=== PATIENT | male | born 1980 | race Caucasian/White ===

== ENCOUNTER → 2016-10-25 | Outpatient (CLI) | payer OTHER ==
[~2016-10-25] MED LIST: ALPR-411 PO; ALPR1TAB3 PO; BUPRTAB PO; BUPRTAB51 PO; CLON1TAB3 PO; LITH600C PO; NALT380I IM; ZOLP10TA PO; [UNRECOGNIZED DRUG - REMARK] PO
--- NOTE | 2016-10-25 11:53 | DIAGNOSTIC IMAGING REPORT ---
BILIARY ULTRASOUND CLINICAL HISTORY: EPIGASTRIC PAIN R10.13 COMPARISON STUDY: 03/02/2011 FINDINGS: The pancreas appears sonographically normal. The gallbladder appears sonographically normal. There is no ductal dilatation. The common bile duct measures 3 mm. There is no right-sided hydronephrosis. The liver appears sonographically normal. IMPRESSION: Normal study Electronically signed by: Roland Nicholas M.D. 10/25/2016 11:51 AM Dictated Date/Time: 10/25/2016 11:50 AM
== END | disposition home or self-care (01) ==
LOC: C.ULTR 08:04
PROVIDERS: ATTEND Internal Medicine
DX: R10.13 Epigastric pain (principal); R10.11 Right upper quadrant pain

== ENCOUNTER 2016-11-06 19:42 | Emergency (ER) | payer OTHER ==
[~2016-11-06] VITALS: Ht 172.7 cm; Wt 75.5 kg
[~2016-11-06 19:42] MED LIST changes: -ALPR-411 PO; -ALPR1TAB3 PO; -NALT380I IM; -[UNRECOGNIZED DRUG - REMARK] PO
[2016-11-06 19:43] VITALS: TEMP 36.9; Ht 172.7 cm; Wt 75.5 kg
[2016-11-06] MEDS ORDERED: ALPR1TAB3 PO (19:52)
[2016-11-06] MEDS ORDERED: ALPR-411 PO (19:52)
--- NOTE | 2016-11-06 20:35 | EMERGENCY ROOM VISIT NOTE ---
History Report prepared by Franca: Rigo Oquendo Under the Supervision of: Dr. Be Zacarias M.D. First contact with patient: 20:01 Chief Complaint: ANXIETY Stated Complaint: NECK,VISION,RAPID HEARTRATE History of Present Illness The patient is a 36 year old male who presents to the Emergency Room with complaints of persistent generalized tremors since approximately 1800 tonight. The patient was at work at [employer] when the shaking started. His neck and arm also became stiff and difficulty to move. The patient became very anxious because of these symptoms. His vision became temporarily blurry. He denies any headaches. The patient has had these tremors before. He takes lithium, which he has been compliant with. Source of History: patient Onset: 1800 tonight Position: other (generalized) Quality: other (tremors) Timing: other (persistent) Associated Symptoms: + neck pain, No headache Review of Systems See HPI for pertinent positives & negatives. A total of 10 systems reviewed and were otherwise negative. Past Medical & Surgical Medical Problems: (1) ABDOMINAL PAIN, EPIGASTRIC (2) Anxiety (3) ANXIETY STATE NOS (4) ASTHMA, UNSPECIFIED (5) Benign hypertension (6) BENIGN HYPERTENSION (7) Benzodiazepine overdose (8) CHEST PAIN NEC (9) Clostridium difficile infection (10) DEPRESSIVE DISORDER NEC (11) DIZZINESS AND GIDDINESS (12) Dysthymic Disorder (13) FALL NOS (14) History of - schizophrenia (15) HYPOPOTASSEMIA (16) NAUSEA WITH VOMITING (17) opiate withdrawl (18) OTHER CONVULSIONS (19) Pneumonia, Organism Nos (20) SYNCOPE AND COLLAPSE (21) TOBACCO USE DISORDER Family History Heart disease Kidney disease Social History Smoking Status: Current Every Day Smoker Alcohol Use: heavy Drug Use: heroin Marital Status: single Housing Status: lives alone Occupation Status: student, other Current/Historical Medications Scheduled Alprazolam (Xanax), 0.5 MG PO HS Alprazolam (Xanax), 1 MG PO BID Bupropion Hcl (Wellbutrin Xl), 150 MG PO QAM Bupropion Hcl (Wellbutrin Xl), 300 MG PO QAM [place] Carbonate ([place] Carbonate), 1,200 MG PO DAILY Zolpidem Tartrate (Ambien), 10 MG PO HS Allergies Coded Allergies: Penicillins (Verified Allergy, Mild, ., 11/06/16) Physical Exam Vital Signs Date Time Temp Pulse Resp B/P Pulse Ox O2 Delivery O2 Flow Rate FiO2 11/06/16 22:01 73 18 142/80 98 11/06/16 20:51 95 20 164/86 96 Room Air 11/06/16 19:43 36.9 116 20 190/112 97 Room Air Physical Exam CONSTITUTIONAL: Moderate to severe anxious distress. Tremulous. HEENT: No icterus, moist mucous membranes NECK: No meningismus, trachea is midline. CARDIOVASCULAR: Regular rate, normal perfusion RESPIRATORY: Unlabored breathing. Clear to auscultation. GASTROINTESTINAL: Non-tender GENITOURINARY: No flank tenderness MUSCULOSKELETAL: Full range of motion NEUROLOGIC: No acute gross focal deficits. PSYCHIATRIC: Normal affect SKIN: Normal for ethnicity. Medical Decision & Procedures Laboratory Results 11/06/16 20:23 Red Blood Count 4.77, Mean Corpuscular Volume 92.0, Mean Corpuscular Hemoglobin 32.3, Mean Corpuscular Hemoglobin Concent 35.1, Mean Platelet Volume 9.3, Neutrophils (%) (Auto) 55.6, Lymphocytes (%) (Auto) 34.8, Monocytes (%) (Auto) 7.6, Eosinophils (%) (Auto) 1.5, Basophils (%) (Auto) 0.2, Neutrophils # (Auto) 5.89, Lymphocytes # (Auto) 3.69, Monocytes # (Auto) 0.81, Eosinophils # (Auto) 0.16, Basophils # (Auto) 0.02 11/06/16 20:23 Test 11/06/16 20:23 White Blood Count 10.60 K/uL (4.8-10.8) Red Blood Count 4.77 M/uL (4.7-6.1) Hemoglobin 15.4 g/dL (14.0-18.0) Hematocrit 43.9 % (42-52) Mean Corpuscular Volume 92.0 fL (80-100) Mean Corpuscular Hemoglobin 32.3 pg (25-34) Mean Corpuscular Hemoglobin Concent 35.1 g/dl (32-36) Platelet Count 313 K/uL (130-400) Mean Platelet Volume 9.3 fL (7.4-10.4) Neutrophils (%) (Auto) 55.6 % Lymphocytes (%) (Auto) 34.8 % Monocytes (%) (Auto) 7.6 % Eosinophils (%) (Auto) 1.5 % Basophils (%) (Auto) 0.2 % Neutrophils # (Auto) 5.89 K/uL (1.4-6.5) Lymphocytes # (Auto) 3.69 K/uL (1.2-3.4) Monocytes # (Auto) 0.81 K/uL (0.11-0.59) Eosinophils # (Auto) 0.16 K/uL (0-0.5) Basophils # (Auto) 0.02 K/uL (0-0.2) RDW Standard Deviation 42.8 fL (36.4-46.3) RDW Coefficient of Variation 12.6 % (11.5-14.5) Immature Granulocyte % (Auto) 0.3 % Immature Granulocyte # (Auto) 0.03 K/uL (0.00-0.02) Anion Gap 13.0 mmol/L (3-11) Est Creatinine Clear Calc Drug Dose 107.1 ml/min Estimated GFR () 122.1 Estimated GFR (Non- 105.4 BUN/Creatinine Ratio 11.0 (10-20) Calcium Level 10.0 mg/dl (8.5-10.1) Chemistry Specimen Hemolysis [place] Level 0.7 mMOL/L (0.6-1.2) Ethyl Alcohol mg/dL < 3.0 mg/dl (0-3) Labs reviewed by ED physician. Medications Administered Medications (Trade) Dose Ordered Sig/Pamela Route Start Time Stop Time Status Last Admin Dose Admin Lorazepam (Ativan Inj) 1 mg NOW STAT IV 11/06/16 20:38 11/06/16 20:39 DC 11/06/16 20:45 1 MG Acetaminophen (Tylenol Tab) 1,000 mg NOW STAT PO 11/06/16 20:40 11/06/16 20:42 DC 11/06/16 20:50 1,000 MG Ketorolac Tromethamine (Toradol Inj) 30 mg NOW STAT IV 11/06/16 20:40 11/06/16 20:42 DC 11/06/16 20:48 30 MG ED Course 2034: Past medical records reviewed. The patient was evaluated in room C11b. A complete history and physical examination was performed. 2037: Ativan 1 mg IV. 2039: Toradol 30 mg IV, Tylenol 1000 mg PO. 2044: Ativan 1 mg IV PRN. 2146: Reassessed the patient. He appeared completely comfortable. Discussed the findings with him. He verbalized understanding and agreement of the treatment plan. The patient is ready for discharge. Medical Decision 36-year-old with history of anxiety disorder presents to the emergency room for acute anxiety attack after he had a red bull while at work. He is compliant with his lithium and his review of systems otherwise negative. He was trembling and very anxious on first examination was subsequently given Ativan IV. Reexamination prior to discharge revealed patient to be comfortable and congenial complaints. He had no further concerns and desired to leave. Impression Primary Impression: Anxiety Scribe Attestation The scribe's documentation has been prepared under my direction and personally reviewed by me in its entirety. I confirm that the note above accurately reflects all work, treatment, procedures, and medical decision making performed by me. Departure Information Dispostion Home / Self-Care Referrals Christian Yusuf MD (PCP) Forms HOME CARE DOCUMENTATION FORM, IMPORTANT VISIT INFORMATION, Work Instructions Patient Instructions Anxiety Body Response, My [facility]
[2016-11-06] MEDS ORDERED: LORAZEPAM 2 MG/ML 1 ML VIAL IV STA (20:38)
[2016-11-06] MEDS ORDERED: ACETAMINOPHEN 500 MG TAB PO STA (20:40)
[2016-11-06] MEDS ORDERED: KETOROLAC TROMETHAMINE 30 MG/ML VIAL IV STA (20:40)
[2016-11-06] MEDS ORDERED: LORAZEPAM 2 MG/ML 1 ML VIAL IV PRN (20:45)
[2016-11-06 20:49] LABS: BASO % 0.2 %; BASO ABS # 0.02 K/uL (0-0.2); COMPLETE YES; EOS % 1.5 %; HEMATOCRIT 43.9 % (42-52); IG% 0.3 %; LYMPH % 34.8 %; LYMPH ABS # 3.69 K/uL (1.2-3.4); MEAN CORPUSCULAR HEMOGLOBIN 32.3 pg (25-34); MEAN CORPUSCULAR HGB CONC 35.1 g/dl (32-36); MEAN PLATELET VOLUME 9.3 fL (7.4-10.4); MONO % 7.6 %; NEUT % 55.6 %; PLATELET COUNT 313 K/uL (130-400); RED BLOOD COUNT 4.77 M/uL (4.7-6.1)
[2016-11-06 21:09] LABS: CREATININE 0.94 mg/dl (0.60-1.40); POTASSIUM 4.5 mmol/L (3.5-5.1)
[2016-11-06 22:01] VITALS: BP 142/80; PULSE 73; O2SAT 98
== END 2016-11-06 22:01 | disposition home or self-care (01) ==
LOC: C.EDB 19:43 → C.EDC 22:01
DX: F41.9 Anxiety disorder, unspecified (principal); J45.909 Unspecified asthma, uncomplicated; I10 Essential (primary) hypertension; F17.200 Nicotine dependence, unspecified, uncomplicated

== ENCOUNTER → 2016-11-21 | Outpatient (CLI) | payer OTHER ==
[~2016-11-21] MED LIST changes: +ALPR-411 PO; +ALPR1TAB3 PO; -CLON1TAB3 PO; +NALT380I IM; +[UNRECOGNIZED DRUG - REMARK] PO
[2016-11-21 10:13] LABS: BLOOD UREA NITROGEN 14 mg/dl (7-18); BUN/CREATININE RATIO 14.5 (10-20); CALCIUM 9.4 mg/dl (8.5-10.1); CARBON DIOXIDE 28 mmol/L (21-32); CHLORIDE 104 mmol/L (98-107); CREATININE 0.95 mg/dl (0.60-1.40); GLUCOSE 71 mg/dl (70-99); POTASSIUM 4.2 mmol/L (3.5-5.1); SODIUM 140 mmol/L (136-145)
== END | disposition home or self-care (01) ==
LOC: C.LAB 09:19
PROVIDERS: ATTEND Psychiatry & Neurology Psychiatry
DX: Z79.899 Other long term (current) drug therapy (principal)

== ENCOUNTER 2017-02-20 13:48 | Emergency (ER) | payer OTHER ==
[~2017-02-20] VITALS: Ht 172.7 cm; Wt 72.9 kg
[~2017-02-20 13:48] MED LIST changes: -NALT380I IM; -[UNRECOGNIZED DRUG - REMARK] PO
[2017-02-20 13:55] VITALS: TEMP 36.7; Ht 172.7 cm; Wt 72.9 kg
[2017-02-20 14:02] VITALS: O2SAT 92
[2017-02-20] MEDS ORDERED: NALT380I IM (14:34)
[2017-02-20] MEDS ORDERED: [UNRECOGNIZED DRUG - REMARK] PO (14:40)
[2017-02-20] MEDS ORDERED: SODIUM CHLORIDE 0.9% 1000ML 1,000 ML IV STA (15:08)
[2017-02-20 16:29] LABS: BASO % 0.3 %; BASO ABS # 0.03 K/uL (0-0.2); COMPLETE YES; HEMATOCRIT 46.9 % (42-52); IG% 0.3 %; LYMPH ABS # 4.16 K/uL (1.2-3.4); MEAN CELL VOLUME 92.3 fL (80-100); MEAN CORPUSCULAR HEMOGLOBIN 31.1 pg (25-34); MEAN CORPUSCULAR HGB CONC 33.7 g/dl (32-36); MEAN PLATELET VOLUME 9.1 fL (7.4-10.4); MONO % 5.1 %; NEUT % 46.3 %; PLATELET COUNT 327 K/uL (130-400); RED BLOOD COUNT 5.08 M/uL (4.7-6.1); WHITE BLOOD COUNT 8.86 K/uL (4.8-10.8)
[2017-02-20 16:48] LABS: ALT/SGPT 18 U/L (12-78); AST/SGOT 19 U/L (15-37); BLOOD UREA NITROGEN 4 mg/dl (7-18); BUN/CREATININE RATIO 4.8 (10-20); CALCIUM 9.3 mg/dl (8.5-10.1); CARBON DIOXIDE 31 mmol/L (21-32); CHLORIDE 110 mmol/L (98-107); CREATININE 0.75 mg/dl (0.60-1.40); GLUCOSE 81 mg/dl (70-99); POTASSIUM 3.9 mmol/L (3.5-5.1); SODIUM 149 mmol/L (136-145)
[2017-02-20 16:51] LABS: ALKALINE PHOSPHATASE 61 U/L (45-117)
[2017-02-20 16:53] LABS: ACETAMINOPHEN < 2 ug/ml (10-30)
[2017-02-20 17:08] VITALS: BP 125/88; PULSE 79; O2SAT 100
--- NOTE | 2017-02-20 18:22 | EMERGENCY ROOM VISIT NOTE ---
History Report prepared by Franca: Seth Francois Under the Supervision of: Dr. Reed Benjamin M.D. First contact with patient: 14:57 Chief Complaint: ALCOHOL OVERDOSE Stated Complaint: ALCOHOL OVERDOSE Nursing Triage Summary: pt arrived with staff antisubmarine officer and cuffed. reported pt is underarrest for viloation of probation pt was visited by staff antisubmarine officer today, pt came out of home visually intoxicated and staggering and combative staff antisubmarine officer states he blew 0.361 pt reports drinking unknown amount of hard liquior and beer pt c/o headache History of Present Illness The patient is a 37 year old male who presents to the Emergency Room with complaints of alcohol intoxication beginning shortly prior to arrival. Per program officer, the patient is on probation and is not allowed to drink alcohol at all. He states that he found the patient to be drinking today. He states that the patient blew a 0.361 on scene. The program officer states that the patient is under arrest and needs to be medically cleared before going to shelter. The patient states "I didn't drink enough to become intoxicated", but admits that he did have some alcohol today. He also complains of a headache, which he believes to be from stress. He denies any recent falls or trauma. The patient states that he has had diarrhea and vomiting last week. He states that his diarrhea, and vomiting have since resolved. HPI limited secondary to alcohol intoxication. Source of History: patient, other (program officer) History Limited By: intoxication (alcohol) Onset: shortly prior to arrival Quality: other (alcohol intoxication) Timing: constant Associated Symptoms: + diarrhea, + headache, + vomiting Review of Systems ROS limited secondary to alcohol intoxication. Past Medical & Surgical Medical Problems: (1) ABDOMINAL PAIN, EPIGASTRIC (2) Anxiety (3) ANXIETY STATE NOS (4) ASTHMA, UNSPECIFIED (5) Benign hypertension (6) BENIGN HYPERTENSION (7) Benzodiazepine overdose (8) CHEST PAIN NEC (9) Clostridium difficile infection (10) DEPRESSIVE DISORDER NEC (11) DIZZINESS AND GIDDINESS (12) Dysthymic Disorder (13) FALL NOS (14) History of - schizophrenia (15) HYPOPOTASSEMIA (16) NAUSEA WITH VOMITING (17) opiate withdrawl (18) OTHER CONVULSIONS (19) Pneumonia, Organism Nos (20) SYNCOPE AND COLLAPSE (21) TOBACCO USE DISORDER Family History Heart disease Kidney disease Social History Smoking Status: Current Every Day Smoker Alcohol Use: heavy Drug Use: heroin Marital Status: single Housing Status: lives alone Occupation Status: student, other Current/Historical Medications Scheduled Alprazolam (Xanax), 0.5 MG PO HS Alprazolam (Xanax), 1 MG PO BID Bupropion Hcl (Wellbutrin Xl), 150 MG PO QAM Bupropion Hcl (Wellbutrin Xl), 300 MG PO QAM [place] Carbonate (Kimball Carbonate), 1,200 MG PO DAILY Naltrexone (Vivitrol), 300 MG IM MONTHLY Zolpidem Tartrate (Ambien), 10 MG PO HS [anti-psychotic], 1 TAB PO DAILY Allergies Coded Allergies: Penicillins (Verified Allergy, Mild, ., 11/06/16) Physical Exam Vital Signs Date Time Temp Pulse Resp B/P Pulse Ox O2 Delivery O2 Flow Rate FiO2 02/20/17 17:08 79 16 125/88 100 02/20/17 15:27 81 16 128/91 98 Room Air 02/20/17 14:02 92 Room Air 02/20/17 13:55 36.7 63 18 128/89 92 Room Air 02/20/17 13:55 90 Physical Exam Constitutional: Vital signs reviewed. Eyes: Pupils are equal round reactive to light. Conjunctiva are noninjected. ENT: Pharynx is clear without erythema or exudate. Mucous membranes are moist. Neck supple without meningeal signs. Normocephalic atraumatic. Respiratory: Clear to auscultation bilaterally. Breath sounds are equal bilaterally. Cardiovascular: Regular rate and rhythm. No rubs or gallops. GI: Soft, nondistended and nontender. Bowel sounds are present. Musculoskeletal: No peripheral edema. No lower extremity tenderness. Integumentary: No cyanosis. Neurological: The patient is awake alert. No focal deficits. No gross cranial nerve deficits. Not cooperative with exam. Intoxicated. Slurred speech. Psychiatric: Unable to assess. Medical Decision & Procedures Laboratory Results 02/20/17 15:52 Red Blood Count 5.08, Mean Corpuscular Volume 92.3, Mean Corpuscular Hemoglobin 31.1, Mean Corpuscular Hemoglobin Concent 33.7, Mean Platelet Volume 9.1, Neutrophils (%) (Auto) 46.3, Lymphocytes (%) (Auto) 47.0, Monocytes (%) (Auto) 5.1, Eosinophils (%) (Auto) 1.0, Basophils (%) (Auto) 0.3, Neutrophils # (Auto) 4.10, Lymphocytes # (Auto) 4.16, Monocytes # (Auto) 0.45, Eosinophils # (Auto) 0.09, Basophils # (Auto) 0.03 02/20/17 15:52 Test 02/20/17 15:52 White Blood Count 8.86 K/uL (4.8-10.8) Red Blood Count 5.08 M/uL (4.7-6.1) Hemoglobin 15.8 g/dL (14.0-18.0) Hematocrit 46.9 % (42-52) Mean Corpuscular Volume 92.3 fL (80-100) Mean Corpuscular Hemoglobin 31.1 pg (25-34) Mean Corpuscular Hemoglobin Concent 33.7 g/dl (32-36) Platelet Count 327 K/uL (130-400) Mean Platelet Volume 9.1 fL (7.4-10.4) Neutrophils (%) (Auto) 46.3 % Lymphocytes (%) (Auto) 47.0 % Monocytes (%) (Auto) 5.1 % Eosinophils (%) (Auto) 1.0 % Basophils (%) (Auto) 0.3 % Neutrophils # (Auto) 4.10 K/uL (1.4-6.5) Lymphocytes # (Auto) 4.16 K/uL (1.2-3.4) Monocytes # (Auto) 0.45 K/uL (0.11-0.59) Eosinophils # (Auto) 0.09 K/uL (0-0.5) Basophils # (Auto) 0.03 K/uL (0-0.2) RDW Standard Deviation 42.8 fL (36.4-46.3) RDW Coefficient of Variation 12.7 % (11.5-14.5) Immature Granulocyte % (Auto) 0.3 % Immature Granulocyte # (Auto) 0.03 K/uL (0.00-0.02) Anion Gap 8.0 mmol/L (3-11) Est Creatinine Clear Calc Drug Dose 133.0 ml/min Estimated GFR () 137.7 Estimated GFR (Non- 118.8 BUN/Creatinine Ratio 4.8 (10-20) Calcium Level 9.3 mg/dl (8.5-10.1) Total Bilirubin 0.2 mg/dl (0.2-1) Direct Bilirubin < 0.1 mg/dl (0-0.2) Aspartate Amino Transf (AST/SGOT) 19 U/L (15-37) Alanine Aminotransferase (ALT/SGPT) 18 U/L (12-78) Alkaline Phosphatase 61 U/L (45-117) Total Protein 8.4 gm/dl (6.4-8.2) Albumin 4.6 gm/dl (3.4-5.0) Salicylates Level 2.9 mg/dl (2.8-20) Acetaminophen Level < 2 ug/ml (10-30) Ethyl Alcohol mg/dL 278.0 mg/dl (0-3) Laboratory results as reviewed by me. Medications Administered Medications (Trade) Dose Ordered Sig/Pamela Route Start Time Stop Time Status Last Admin Dose Admin Sodium Chloride (Nss 1000ml) 1,000 ml @ 999 mls/hr Q1H1M STAT IV 02/20/17 15:08 02/20/17 16:08 DC 02/20/17 15:08 999 MLS/HR ED Course 1502: The patient was evaluated in room C4. A complete history and physical exam was performed. 1508: Ordered Sodium Chloride 1000 ml @ 999 mls/hr IV. 1712: I reassessed the patient. He has no complaints. He denies having a headache and states that he feels better. The program officer is comfortable taking the patient to shelter. That patient was discharged to shelter. Medical Decision This is a 37-year-old male brought in by his program officer for medical clearance to go to shelter. I did perform a limited focused review of portions of the patient's old chart on the electronic medical record. The patient was here for anxiety in October and was treated with Ativan. I did evaluate the patient as noted above. The patient is obviously intoxicated. He does complain of a headache but he states this is from stress as he is about to go back to shelter. He denies any injury. IV access was established. I did treat patient with normal saline IV. I did order and review the patient's blood work as noted in the electronic medical record. His alcohol level is over 200. I did reevaluate patient. He is feeling better. He denies any headache at this time. He is still intoxicated but the program officer did feel comfortable taking him to shelter at this time. I therefore discharged patient with the program officer. Impression Primary Impression: Alcohol intoxication Scribe Attestation The scribe's documentation has been prepared under my direct and personally reviewed by me in its entirety. I confirm that the note above accurately reflects all work, treatment, procedures, and medical decision making performed by me. Departure Information Dispostion Other (Long-Term with police) Referrals Christian Yusuf MD (PCP) Forms HOME CARE DOCUMENTATION FORM, IMPORTANT VISIT INFORMATION Patient Instructions ED Alcohol Intoxication, My [facility] Additional Instructions Follow up with your doctor. Problem Qualifiers Primary Impression: Alcohol intoxication Complication of substance-induced condition: uncomplicated Qualified Codes: F10.920 - Alcohol use, unspecified with intoxication, uncomplicated
== END 2017-02-20 17:32 | disposition home or self-care (01) ==
LOC: EDBD 13:48 → C.EDC 13:50
DX: F10.120 Alcohol abuse with intoxication, uncomplicated (principal); Y90.8 Blood alcohol level of 240 mg/100 ml or more; R51 Headache; F43.9 Reaction to severe stress, unspecified; F41.9 Anxiety disorder, unspecified; J45.909 Unspecified asthma, uncomplicated; I10 Essential (primary) hypertension; F32.9 Major depressive disorder, single episode, unspecified; F20.9 Schizophrenia, unspecified; Z87.01 Personal history of pneumonia (recurrent); F17.210 Nicotine dependence, cigarettes, uncomplicated; F11.10 Opioid abuse, uncomplicated; Z79.899 Other long term (current) drug therapy

== ENCOUNTER 2020-07-11 13:25 | Inpatient (IN) ==
[2020-07-11] MEDS ORDERED: SODIUM CHLORIDE 0.9% 1000ML 1,000 ML IV ONE (14:06)
[2020-07-11] MEDS ORDERED: NICOTINE 14 MG/24 HR PATCH TD STA (14:06)
[2020-07-11] MEDS ORDERED: MULTI-VITAMIN INFUSION 10 ML, THIAMINE HCL 100 MG, FOLIC ACID 1 MG in SODIUM CHLORIDE 0... IV ONE (14:06)
--- NOTE | 2020-07-11 14:14 | Emergency Department Note ---
History of Present Illness General Chief complaint: Detox Request Stated complaint: ALCOHOL DETOX Time Seen by Provider: 07/11/20 13:56 Source: patient History of Present Illness Provider complaint: Alcohol withdrawal Onset (ago): day(s) Location: head Severity: moderate Pain Consistency: + intermittent Quality: + other (Nausea and tremors) Relieved By: + other (Alcohol) Associated symptoms: no chest pain, no cough, no fever/chills and no shortness of breath This is a 40-year-old male who has been abusing alcohol since age 15 presenting with alcohol withdrawal symptoms. The patient states that 2 months ago he tried to stop drinking but could not tolerate the withdrawal symptoms. He has been trying to cut back for the past several days and has had some withdrawal symptoms including shaking and nausea and diarrhea. He has not been eating very much. He is requesting alcohol detoxification in the hospital. He normally drinks about 20 alcoholic beverages a day. He states that he has been cutting back and today had 10 glasses of wine. He last drank alcohol an hour ago. He does have a history of withdrawal seizures and had one when he was in half-way. He was brought to the hospital and kept as an inpatient at that time. He does see a psychiatrist as well but states that he does not have any suicidal or homi cidal ideation. He denies any fever, cough, loss of taste or smell, chest pain, shortness of breath, vomiting or abdominal pain. He denies any known exposure COVID-19. He does have diarrhea and was recently tested for C. difficile. This was negative. He believes his diarrhea is likely from not eating well and drinking too much. He denies any recent antibiotic use. Home Medications Home Medications Medication Instructions Recorded Confirmed Type lithium carbonate 1,350 mg PO DAILY 07/11/20 07/11/20 History Allergies Allergy/AdvReac Type Severity Reaction Status Date / Time Penicillins Allergy Mild . Verified 07/11/20 14:31 Past Med/Surg History Medical History (Updated 07/11/20 @ 18:37 by Reed Benjamin MD) Alcohol abuse Asthma History of seizure Secondary to alcohol withdrawal Schizophrenia Tobacco abuse Surgical History No pertinent past surgical history Family History Mother , Lung Ca Hypertension Cancer Father Colon cancer Diabetes Brother Diabetes Brother Colorectal cancer Alcohol abuse Sister Alcohol abuse Social History Smoking Status: Current every day smoker packs per day: 1; Years Smoked: 22; Cigarettes Per Day: 30; Second Hand Exposure: No; Do You Dip or Chew Tobacco: No; Tobacco Cessation Education Requested by Patient: No Hx Alcohol Use: Yes Alcohol type: beer and wine Alcohol Intake Frequency Comment: Daily, 12 to 14 glasses of wine daily Hx Substance Use: No Preferred Language: Kenyan Communication Ability: Effective Beliefs That Will Affect Care: None marital status: Current Living Situation: Spouse current occupational status: employed Other Information That Helps Us Care for You: No Feels Safe at Home: Yes Safety Concerns: Feels Safe At This Time Assistive Devices: Nebulizer Review of Systems See HPI for pertinent positives & negatives. and A total of 10 systems reviewed and were otherwise negative Physical Exam Vital Signs Vital Signs - 24 hr 07/11/20 13:29 07/11/20 16:19 07/11/20 16:21 Temperature 36.9 C Temperature Source Oral Pulse Rate 107 H Pulse Rate [Right Finger] 110 H Pulse Rate from SpO2 Sensor 88 Pulse Rhythm Regular Pulse Strength Normal Respiratory Rate 18 24 Respiratory Effort / Characteristics Non-Labored Spontaneous Non-Labored Spontaneous Respiratory Depth Normal Normal Respiratory Pattern Regular Blood Pressure 159/91 H Blood Pressure [Right Arm] 150/101 H Blood Pressure Mean 113 Blood Pressure Mean [Right Arm] 117 Blood Pressure Position Sitting Pulse Oximetry 95 95 95 Oxygen Delivery Method Room Air Room Air Sepsis Recent Fever Within 48 Hours No Sepsis New/Unexplained Change in Mental Status No Sepsis Action Taken by Nursing No Action Required 07/11/20 16:30 Temperature Temperature Source Pulse Rate 88 Pulse Rate [Right Finger] Pulse Rate from SpO2 Sensor 88 Pulse Rhythm Pulse Strength Respiratory Rate 13 Respiratory Effort / Characteristics Respiratory Depth Respiratory Pattern Blood Pressure 116/73 Blood Pressure [Right Arm] Blood Pressure Mean 91 Blood Pressure Mean [Right Arm] Blood Pressure Position Pulse Oximetry 94 Oxygen Delivery Method Sepsis Recent Fever Within 48 Hours Sepsis New/Unexplained Change in Mental Status Sepsis Action Taken by Nursing Constitutional: Vital signs reviewed. Eyes: Pupils are equal round reactive to light. Conjunctiva are noninjected. ENT: Pharynx is clear without erythema or exudate. Mucous membranes are very dry. Neck supple without meningeal signs. Respiratory: Clear to auscultation bilaterally. Breath sounds are equal bilaterally. Cardiovascular: Tachycardic. Regular rhythm. No rubs or gallops. GI: Soft, slightly distended and nontender. Bowel sounds are present. Musculoskeletal: No peripheral edema. No lower extremity tenderness. Integumentary: No cyanosis. or jaundice. Neurological: The patient is awake and alert. No focal deficits. Psychiatric: Flat affect. Course Administered Medications Sodium Chloride (Nss 1000ml) 1,000 mls @ 80 mls/hr IV .[id number] EMANUEL Stop: 07/12/20 19:19 Last Admin: 07/11/20 18:26 Dose: 80 mls/hr Documented by: [id number] Discontinued Medications Sodium Chloride (Nss 1000ml) 1,000 mls @ 999 mls/hr IV .Q1H1M ONE Stop: 07/11/20 15:06 Last Infusion: 07/11/20 16:30 Dose: 0 mls/hr Documented by: [id number] Admin: 07/11/20 15:01 Dose: 999 mls/hr Documented by: [id number] Multivitamins 10 ml/ Thiamine HCl 100 mg/ Folic Acid 1 mg/Sodium Chloride 1,011.2 mls @ 1,011.2 mls/hr IV .Q1H ONE Stop: 07/11/20 15:05 Last Infusion: 07/11/20 16:30 Dose: 0 mls/hr Documented by: [id number] Admin: 07/11/20 15:01 Dose: 1,011.2 mls/hr Documented by: [id number] Lorazepam (Ativan) 1 mg in 2 mls @ 2 mls/min IV NOW STA Stop: 07/11/20 16:32 Last Admin: 07/11/20 17:09 Dose: 2 mls/min Documented by: [id number] Nicotine (Nicotine 14 Mg/24 Hr Patch) 14 mg TD NOW STA Stop: 07/11/20 14:07 Last Admin: 07/11/20 15:01 Dose: Not Given Documented by: [id number] Nicotine (Nicotine 21 Mg/24 Hr Tdsy) Confirm Administered Dose 21 mg TD .STK-MED ONE Stop: 07/11/20 14:53 Last Admin: 07/11/20 15:01 Dose: 21 mg Documented by: [id number] Medical Decision Making Differential Diagnosis Alcohol dependence, alcohol withdrawal, alcoholic ketoacidosis, dehydration, electrolyte abnormality Medical Records Attestation: I reviewed the patient's medical records. I did perform a limited focused review of portions of the patient's old chart on the electronic medical record. The patient has had no recent pertinent visits to this hospital. Home Medications Current Medication List: was personally reviewed by me Laboratory Data Attestation: I reviewed the patient's lab results. Result diagrams: 07/11/20 14:50 07/11/20 14:50 Lab Results 07/11/20 07/11/20 07/11/20 Range/Units 14:45 14:50 14:50 WBC (4.8-10.8) K/uL RBC (4.7-6.1) M/uL Hgb (14.0-18.0) g/dL Hct (42-52) % MCV (80-100) fL MCH (25-34) pg MCHC (32-36) g/dL RDW Std Deviation (36.4-46.3) fL RDW Coeff of Sumeet (11.5-14.5) % Plt Count (130-400) K/uL MPV (7.4-10.4) fL Immature Gran % (Auto) % Neut % (Auto) % Lymph % (Auto) % [place] % (Auto) % Eos % (Auto) % Baso % (Auto) % Neut # (Auto) (1.4-6.5) K/uL Lymph # (Auto) (1.2-3.4) K/uL [place] # (Auto) (0.11-0.59) K/uL Eos # (Auto) (0-0.5) K/uL Baso # (Auto) (0-0.2) K/uL Immature Gran # (Auto) (0.00-0.02) K/uL PT (9.0-12.0) Seconds INR (0.9-1.1) APTT (21.0-31.0) Seconds PTT Ratio Sodium 140 (136-145) mmol/L Potassium 3.8 (3.5-5.1) mmol/L Chloride 107 (98-107) mmol/L Carbon Dioxide 23 (21-32) mmol/L Anion Gap 10.0 (3-11) BUN 11 (7-18) mg/dl Creatinine 0.77 (0.6-1.4) mg/dl Est Cr Clr Drug Dosing 125.8 ml/min Est GFR ( Amer) 133.4 Est GFR (Non-Af Amer) 115.1 BUN/Creatinine Ratio 13.7 (10-20) Glucose 141 H (70-99) mg/dl Calcium 9.5 (8.5-10.1) mg/dl Magnesium 2.4 (1.8-2.4) mg/dl Total Bilirubin 0.2 (0.2-1) mg/dl AST 98 H (15-37) U/L ALT 48 (12-78) U/L Alkaline Phosphatase 78 (45-117) U/L Total Protein 8.1 (6.4-8.2) gm/dl Albumin 4.2 (3.4-5.0) gm/dl Globulin 3.9 (2.5-4.0) gm/dl Albumin/Globulin Ratio 1.1 (0.9-2) Urine Opiates Screen Neg (Neg) Ur Methadone, Qual Neg (Neg) Urine Barbiturates Neg (Neg) Ur Phencyclidine (PCP) Neg (Neg) U Amphetamin/Meth Scrn Neg (Neg) MDMA (Ecstasy) Screen Neg (Neg) U Benzodiazepines Scrn Neg (Neg) Ur Cocaine Metabolite Neg (Neg) U Marijuana (THC) Screen Pos H (Neg) Ethyl Alcohol mg/dL 284.4 H (0-3) mg/dl 07/11/20 07/11/20 Range/Units 14:50 14:50 WBC 6.21 (4.8-10.8) K/uL RBC 4.67 L (4.7-6.1) M/uL Hgb 16.0 (14.0-18.0) g/dL Hct 44.3 (42-52) % MCV 94.9 (80-100) fL MCH 34.3 H (25-34) pg MCHC 36.1 H (32-36) g/dL RDW Std Deviation 43.8 (36.4-46.3) fL RDW Coeff of Sumeet 12.7 (11.5-14.5) % Plt Count 149 (130-400) K/uL MPV 9.2 (7.4-10.4) fL Immature Gran % (Auto) 0.3 % Neut % (Auto) 60.9 % Lymph % (Auto) 25.4 % [place] % (Auto) 12.9 % Eos % (Auto) 0.3 % Baso % (Auto) 0.2 % Neut # (Auto) 3.78 (1.4-6.5) K/uL Lymph # (Auto) 1.58 (1.2-3.4) K/uL [place] # (Auto) 0.80 H (0.11-0.59) K/uL Eos # (Auto) 0.02 (0-0.5) K/uL Baso # (Auto) 0.01 (0-0.2) K/uL Immature Gran # (Auto) 0.02 (0.00-0.02) K/uL PT 9.7 (9.0-12.0) Seconds INR 0.9 (0.9-1.1) APTT 27.5 (21.0-31.0) Seconds PTT Ratio 1.0 Sodium (136-145) mmol/L Potassium (3.5-5.1) mmol/L Chloride (98-107) mmol/L Carbon Dioxide (21-32) mmol/L Anion Gap (3-11) BUN (7-18) mg/dl Creatinine (0.6-1.4) mg/dl Est Cr Clr Drug Dosing ml/min Est GFR ( Amer) Est GFR (Non-Af Amer) BUN/Creatinine Ratio (10-20) Glucose (70-99) mg/dl Calcium (8.5-10.1) mg/dl Magnesium (1.8-2.4) mg/dl Total Bilirubin (0.2-1) mg/dl AST (15-37) U/L ALT (12-78) U/L Alkaline Phosphatase (45-117) U/L Total Protein (6.4-8.2) gm/dl Albumin (3.4-5.0) gm/dl Globulin (2.5-4.0) gm/dl Albumin/Globulin Ratio (0.9-2) Urine Opiates Screen (Neg) Ur Methadone, Qual (Neg) Urine Barbiturates (Neg) Ur Phencyclidine (PCP) (Neg) U Amphetamin/Meth Scrn (Neg) MDMA (Ecstasy) Screen (Neg) U Benzodiazepines Scrn (Neg) Ur Cocaine Metabolite (Neg) U Marijuana (THC) Screen (Neg) Ethyl Alcohol mg/dL (0-3) mg/dl Blood Pressure Blood Pressure Findings: Elevated blood pressure Blood Pressure Disposition: further management by hospitalist SONIA Resendez I did evaluate the patient as noted above. The patient is presenting for inpatient alcohol detox. IV access was established. I did place an order for continuous cardiac monitoring. The monitor showed sinus tachycardia with a rate of 107. I did treat the patient with normal saline IV. He was also given a banana bag IV. He was given a nicotine patch per his request. I did order stool cultures and C. difficile testing for his diarrhea. I did order and review the patient's blood work as noted in the electronic medical record. CBC is unremarkable. There is no leukocytosis or anemia. Electrolytes and LFTs are unremarkable other than a slightly elevated AST. He did state that when he last had his liver function tests drawn they were in the 150s. The patient became more tachycardic and hypertensive here so I did treat him with Ativan 1 mg IV. I did discuss the test results with the patient. I did discuss the case with the hospitalist and geriatric case manager. Impression & Plan Alcohol withdrawal, Diarrhea Discharge Plan Visit Data Chief Complaint: Detox Request Stated Complaint: ALCOHOL DETOX ED Provider: Reed Benjamin Discharge Problem: Alcohol withdrawal, Diarrhea Patient Disposition: Admitted As Inpatient Discharge Instructions Interventions: ED Discharge Assessment Last Done: 07/11/20 17:44
[2020-07-11] MEDS ORDERED: NICOTINE 21 MG/24 HR TDSY TD ONE (14:52)
[2020-07-11 15:04] LABS: Basophils # (auto) 0.01 K/uL (0-0.2); Basophils % (auto) 0.2 %; Eosinophils # (auto) 0.02 K/uL (0-0.5); Eosinophils % (auto) 0.3 %; Hematocrit (blood only) 44.3 % (42-52); Immature Granulocytes # (auto) 0.02 K/uL (0.00-0.02); Immature Granulocytes % (auto) 0.3 %; Lymphocytes # (auto) 1.58 K/uL (1.2-3.4); Lymphocytes % (auto) 25.4 %; Mean Corpuscular Hemoglobin 34.3 pg (25-34); Mean Corpuscular Hgb Conc 36.1 g/dL (32-36); Mean Corpuscular Volume 94.9 fL (80-100); Mean Platelet Volume 9.2 fL (7.4-10.4); Monocytes % (auto) 12.9 %; Neutrophils # (auto) 3.78 K/uL (1.4-6.5); Neutrophils % (auto) 60.9 %; Platelet Count 149 K/uL (130-400); RDW Coefficient of Variation 12.7 % (11.5-14.5); RDW Standard Deviation 43.8 fL (36.4-46.3); Red Blood Count 4.67 M/uL (4.7-6.1); White Blood Count 6.21 K/uL (4.8-10.8)
[2020-07-11 15:09] LABS: Amphetamines+Metham, Urine Neg (Neg); Barbiturates, Urine Neg (Neg); Benzodiazepine, Urine Neg (Neg); Cocaine, Urine Neg (Neg); MDMA (Ecstacy), Urine Neg (Neg); Methadone, Urine Neg (Neg); Opiate, Urine Neg (Neg); Phencyclidine, Urine Neg (Neg)
[2020-07-11 15:14] LABS: INR 0.9 (0.9-1.1); Partial Thromboplastin Time 27.5 Seconds (21.0-31.0); Prothrombin Time 9.7 Seconds (9.0-12.0)
[2020-07-11 15:23] LABS: Albumin Level 4.2 gm/dl (3.4-5.0); BUN Creatinine Ratio 13.7 (10-20); Calcium 9.5 mg/dl (8.5-10.1); Creatinine Clr Calc Pharmacy 125.8 ml/min; Est GFR (African American) 133.4; Est GFR (Non-African American) 115.1; Magnesium 2.4 mg/dl (1.8-2.4); Potassium 3.8 mmol/L (3.5-5.1)
[2020-07-11 15:25] LABS: Albumin Globulin Ratio 1.1 (0.9-2); Bilirubin,Total 0.2 mg/dl (0.2-1); Globulin 3.9 gm/dl (2.5-4.0); Total Protein 8.1 gm/dl (6.4-8.2)
[2020-07-11] MEDS ORDERED: LORazepam 1 MG/2 ML VIAL IV STA (16:31)
--- NOTE | 2020-07-11 17:22 | History & Physical Report ---
Date of Service July 11, 2020 Assessment & Plan (1) Alcohol withdrawal: (2) Alcohol abuse: This is a 40-year-old male who has significant past medical history of asthma, alcohol abuse, tobacco abuse, schizophrenia, history of seizure secondary to alcohol withdrawal who presents to ED for request of alcohol detoxification. Admit to tele AWSS protocol Librium taper/Active withdrawal ativan protocol Received Banana bag in ED continue IVF NSS 80cc/hr x 2 L daily thiamine and folic acid supplementation case management consulted to discuss rehab options seizure precautions - prior withdrawal resulted in seizure (3) Tobacco abuse: nicotine patch ordered encourage smoking cessation (4) Schizophrenia: continue lithium check lithium level (5) Asthma: pt with wheezing MAYLIN > R no ne acute exacerbation give levalbuterol x 1 now and then prn monitor (6) DVT prophylaxis: SCD/TEDS, encourage ambulation Disposition: admit to tele Follow up: PCP Dr. Yusuf upon discharge Pt was seen and examined in collaboration with Dr. Daniels, please see addendum History of Present Illness Chief Complaint: Alcohol withdrawal Primary Care Provider: Christian Yusuf MD This is a 40-year-old male who has significant past medical history of asthma, alcohol abuse, tobacco abuse, schizophrenia, history of seizure secondary to alcohol withdrawal who presents to ED for request of alcohol detoxification. 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 He states he used to drink 14-16 beers daily, switch to wine because it was easier. He has been drinking 12-14 6 ounce glasses of wine from 6 AM to 3:30 PM and then will go to sleep. He will wake up and repeat the same routine the next day. His last drink today was 1:15 PM. He was trying to self wean and withdrawal on his own, but began to feel more palpitations and opted to seek ED. He currently complains of feeling sweaty and tremulous. He admits to having a seizure during prior withdrawal when he was put in alf and detox there. He does admit to having schizophrenia and is on 1350 mg of lithium daily. He also complains of diarrhea for the past 2 to 3 weeks. He has 8-10 episodes of loose watery stool daily. He attributes it to all of the sugar from his alcohol. He does have a prior history of C. difficile and is requesting C. difficile testing. He denies any fever, chills, sweats, lightheadedness, dizziness, chest pain, shortness of breath, cough, emesis, abdominal pain, dysuria, increased urgency or frequency with urination. He is complaining of heart palpitations, nausea and diaphoresis. Overall decreased appetite. In ED patient remained hemodynamically stable but during my evaluation was becoming tachycardic and mildly hypertensive. His CBC and CMP were generally unremarkable except for elevated glucose 141, AST 98. Drug tox being positive for marijuana and ethyl alcohol elevated at 284.4. He received 1 L of IVF as well as 1 L banana bag in ED. He was prescribed 1 g of Ativan, but this has not yet been administered. Allergies Allergy/AdvReac Type Severity Reaction Status Date / Time Penicillins Allergy Mild . Verified 07/11/20 14:31 Home Medications Home Medications Medication Instructions Recorded Confirmed Type lithium carbonate 1,350 mg PO DAILY 07/11/20 07/11/20 History Past Med/Surg History Medical History (Updated 07/11/20 @ 18:37 by Reed Benjamin MD) Alcohol abuse Asthma History of seizure Secondary to alcohol withdrawal Schizophrenia Tobacco abuse Surgical History No pertinent past surgical history Family History Mother , Lung Ca Hypertension Cancer Father Colon cancer Diabetes Brother Diabetes Brother Colorectal cancer Alcohol abuse Sister Alcohol abuse Social History Smoking Status: Current every day smoker packs per day: 1; Years Smoked: 22; Cigarettes Per Day: 30; Second Hand Exposure: No; Do You Dip or Chew Tobacco: No; Tobacco Cessation Education Requested by Patient: No Hx Alcohol Use: Yes Alcohol type: beer and wine Alcohol Intake Frequency Com ment: Daily, 12 to 14 glasses of wine daily Hx Substance Use: No Preferred Language: Lao Communication Ability: Effective Beliefs That Will Affect Care: None marital status: Current Living Situation: Spouse current occupational status: employed Other Information That Helps Us Care for You: No Feels Safe at Home: Yes Safety Concerns: Feels Safe At This Time Review of Systems Review of Systems: All systems reviewed & are unremarkable except as noted in HPI & below Physical Exam Physical Exam: Constitutional: WD/WN, diaphoretic, vitals as above, NAD, sitting up in bed, pleasant, conversing easily Head: Normocephalic, Atraumatic Eyes: PERRL, conjunctivae normal, anicteric sclerae ENMT: external ear and nose normal, oropharynx normal Neck: trachea midline, no thyromegaly normal visual inspection Respiratory: normal respiratory effort, lungs clear to auscultation, no wheeze, rales, rhonchi. Normal insp/exp effort, no accessory muscle use Cardiovascular: Tachycardic rate, regular rhythm, no murmur, no edema Vessels: no JVD or carotid bruit Chest: normal inspection of chest Abdomen: normal bowel sounds, soft, nontender, no hepatosplenomegaly Musculoskeletal: no cyanosis or clubbing, extremities motor strength 5/5 Skin: no rashes, warm and dry normal turgor Neurologic: tremulous, PERRL, EOMI, accommodation nl, no face palsy, no dysarthria CN's II-XI intact bilaterally and moves all extremities Psychiatric: A+Ox3, euthymic affect Lymphatic: no cervical or axillary lymphadenopathy : deferred Results & Data Results & Data ([facility]) Vital Signs (Past 12 Hours) Vital Signs Temp Pulse Pulse Resp BP BP Pulse Ox 07/11/20 16:30 88 13 116/73 94 07/11/20 16:21 95 07/11/20 16:19 110 H 24 150/101 H 95 07/11/20 13:29 36.9 C 107 H 18 159/91 H 95 Laboratory Results Short CBC 07/11/20 Range/Units 14:50 WBC 6.21 (4.8-10.8) K/uL Hgb 16.0 (14.0-18.0) g/dL Hct 44.3 (42-52) % Plt Count 149 (130-400) K/uL BMP 07/11/20 14:50 Sodium 140 Potassium 3.8 Chloride 107 Carbon Dioxide 23 BUN 11 Creatinine 0.77 Glucose 141 H Calcium 9.5 Liver Function 07/11/20 Range/Units 14:50 Total Bilirubin 0.2 (0.2-1) mg/dl AST 98 H (15-37) U/L ALT 48 (12-78) U/L Alkaline Phosphatase 78 (45-117) U/L Albumin 4.2 (3.4-5.0) gm/dl Medications Administered Discontinued Medications Sodium Chloride (Nss 1000ml) 1,000 mls @ 999 mls/hr IV .Q1H1M ONE Stop: 07/11/20 15:06 Last Infusion: 07/11/20 16:30 Dose: 0 mls/hr Documented by: [id number] Admin: 07/11/20 15:01 Dose: 999 mls/hr Documented by: [id number] Multivitamins 10 ml/ Thiamine HCl 100 mg/ Folic Acid 1 mg/Sodium Chloride 1,011.2 mls @ 1,011.2 mls/hr IV .Q1H ONE Stop: 07/11/20 15:05 Last Infusion: 07/11/20 16:30 Dose: 0 mls/hr Documented by: [id number] Admin: 07/11/20 15:01 Dose: 1,011.2 mls/hr Documented by: [id number] Lorazepam (Ativan) 1 mg in 2 mls @ 2 mls/min IV NOW STA Stop: 07/11/20 16:32 Last Admin: 07/11/20 17:09 Dose: 2 mls/min Documented by: [id number] Nicotine (Nicotine 14 Mg/24 Hr Patch) 14 mg TD NOW STA Stop: 07/11/20 14:07 Last Admin: 07/11/20 15:01 Dose: Not Given Documented by: [id number] Nicotine (Nicotine 21 Mg/24 Hr Tdsy) Confirm Administered Dose 21 mg TD .STK-MED ONE Stop: 07/11/20 14:53 Last Admin: 07/11/20 15:01 Dose: 21 mg Documented by: [id number] Code Status & VTE Plan Code Status Full Code VTE Prophylaxis Plan VTE Prophylaxis will be ordered: No Supervising Physician Co-Signing Physician Notes Attending Addendum: Delayed entry Date of service noted above care coordinated with ROSEMARY Barksdale please refer to her notes for full details, I agree with her notes patient seen and examined, records reviewed by myself as well on exam, patient resting in bed, comfortable, not in distress Has mild tremors and anxiety but denies hallucinations or confusion Admits to having productive cough, yellow sputum and subjective fevers/chills at home No shortness of breath on my exam, no other symptoms VS noted and reviewed oriented x 3 , not in distress, speaks in sentences with no effort nor accessory muscle use normal rate, regular rhythm, no murmurs Positive mild crackles and rhonchi bilateral bases non distended, soft, nontender Positive mild hand tremors, no bipedal edema, erythema, warmth no neuro deficits WBC 4.3 Hg 14.6 Crea 0.66 ASSESSMENT AND PLAN Alcohol Withdrawal Librium protocol Ativan PRN Cough, Fever, likely Acute Bronchitis, r/o PNA, COVID Covid test pending CXR ordered Doxycycline, Nebs other diagnoses and plan of care as per ROSEMARY Castaneda notes Juan Daniel Daniels MD
[2020-07-11] MEDS ORDERED: LEVALBUTEROL TARTRATE 15 GM HFA.AER.AD INH STA (17:25)
[2020-07-11] MEDS ORDERED: MAGNESIUM HYDROXIDE SUSP 30 ML UDC PO PRN (18:20)
[2020-07-11] MEDS ORDERED: ONDANSETRON INJ 2 MG/ML 2 ML VIAL IV PRN (18:20)
[2020-07-11] MEDS ORDERED: ATIVAN IV ALCOHOL WITHDRAWL IV PRN (18:20)
[2020-07-11] MEDS ORDERED: LORazepam 0.25 MG/0.5 ML VIAL IV PRN (18:20)
[2020-07-11] MEDS ORDERED: ALUMINUM/MAGNESIUM SUSP 30 ML UDC PO PRN (18:20)
[2020-07-11] MEDS ORDERED: POLYETHYLENE (MIRALAX) 17 GM PACK PO PRN (18:20)
[2020-07-11] MEDS ORDERED: LORazepam 3 MG/6 ML VIAL IV PRN (18:20)
[2020-07-11] MEDS ORDERED: ACETAMINOPHEN 325 MG TAB PO PRN (18:20)
[2020-07-11] MEDS ORDERED: chlordiazePOXIDE ALCOHOL WITHDRAWL 50MG PO STA (18:20)
[2020-07-11] MEDS: SODIUM CHLORIDE 0.9% 1000ML 1,000 ML IV SCH (18:26)
[2020-07-11] MEDS: IPRATROPIUM BROMIDE NEB SOLN 0.02% 2.5 ML VIAL INH SCH (18:59)
[2020-07-11] MEDS: LEVALBUTEROL HCL 0.63 MG/3 ML NEB NEB SCH (18:59)
[2020-07-11] MEDS ORDERED: XOPENEX/ATROVENT 0.63mg/0.5MG NEB COMBO NEB SCH (19:00)
[2020-07-11] MEDS: chlordiazePOXIDE HCl 25 MG CAP PO SCH (19:44)
[2020-07-11] MEDS: LORazepam 1 MG/2 ML VIAL IV PRN (19:45)
[2020-07-11] MEDS: DOXYCYCLINE HYCLATE 100 MG CAP PO SCH (22:30)
[2020-07-11] MEDS: FOLIC ACID 1 MG TAB PO SCH (22:30)
[2020-07-11] MEDS: THIAMINE HCL 100 MG TAB PO SCH (22:31)
[2020-07-11] MEDS: LORazepam 2 MG/4 ML VIAL IV PRN (23:31)
[2020-07-12] MEDS: chlordiazePOXIDE HCl 25 MG CAP PO SCH ×4 (01:22→18:31)
[2020-07-12] MEDS: SODIUM CHLORIDE 0.9% 1000ML 1,000 ML IV SCH (06:17)
[2020-07-12] MEDS: LEVALBUTEROL HCL 0.63 MG/3 ML NEB NEB SCH ×3 (06:58→14:59)
[2020-07-12] MEDS: IPRATROPIUM BROMIDE NEB SOLN 0.02% 2.5 ML VIAL INH SCH ×3 (06:58→14:59)
[2020-07-12] MEDS: LORazepam 1 MG/2 ML VIAL IV PRN (07:28)
[2020-07-12 07:33] LABS: Hematocrit (blood only) 43.6 % (42-52); Hemoglobin 14.6 g/dL (14.0-18.0); Mean Corpuscular Hemoglobin 32.3 pg (25-34); Mean Corpuscular Hgb Conc 33.5 g/dL (32-36); Mean Corpuscular Volume 96.5 fL (80-100); Mean Platelet Volume 9.4 fL (7.4-10.4); Platelet Count 130 K/uL (130-400); RDW Coefficient of Variation 12.7 % (11.5-14.5); RDW Standard Deviation 45.1 fL (36.4-46.3); Red Blood Count 4.52 M/uL (4.7-6.1); White Blood Count 4.34 K/uL (4.8-10.8)
[2020-07-12] MEDS ORDERED: LORazepam 0.5 MG/1 ML VIAL IV PRN (07:34)
[2020-07-12] MEDS: FLUTICASONE/VILANTEROL 200/25MCG 14 PUFFS/INHALER INH SCH (07:49)
[2020-07-12] MEDS: NICOTINE 21 MG/24 HR TDSY TD SCH (07:50)
[2020-07-12] MEDS: LITHIUM CARBONATE 450 MG TABCR PO SCH (07:51)
[2020-07-12] MEDS: THIAMINE HCL 100 MG TAB PO SCH (07:51)
[2020-07-12] MEDS: DOXYCYCLINE HYCLATE 100 MG CAP PO SCH ×2 (07:52→20:38)
[2020-07-12] MEDS: FOLIC ACID 1 MG TAB PO SCH (07:54)
[2020-07-12 08:09] LABS: Estimated Average Glucose 97 mg/dl
[2020-07-12 08:12] LABS: Albumin Level 3.6 gm/dl (3.4-5.0); BUN Creatinine Ratio 15.6 (10-20); Calcium 8.8 mg/dl (8.5-10.1); Creatinine Clr Calc Pharmacy 146.8 ml/min; Est GFR (African American) 142.1; Est GFR (Non-African American) 122.6; Potassium 3.9 mmol/L (3.5-5.1)
[2020-07-12 08:15] LABS: Albumin Globulin Ratio 1.1 (0.9-2); Bilirubin,Total 0.5 mg/dl (0.2-1); Globulin 3.3 gm/dl (2.5-4.0); Total Protein 6.9 gm/dl (6.4-8.2)
--- NOTE | 2020-07-12 08:50 | XRay Report ---
XR chest 1V portable HISTORY: 40 years-old Male r/o pneumonia acute shortness of breath with reported pneumonia COMPARISON: Chest radiograph 07/18/2015 TECHNIQUE: Portable AP view of the chest FINDINGS: Cardiomediastinal and hilar silhouettes are within normal limits. No pneumothorax, pleural effusion, airspace consolidation or overt pulmonary edema. Bones of the chest appear grossly intact. IMPRESSION: No acute process. ACT 112: Negative or not required by law. The above report was generated using voice recognition software. It may contain grammatical, syntax o r spelling errors. Electronically signed by: Lai Salmeron M.D. 07/12/2020 8:49 AM
[2020-07-12] MEDS: LORazepam 2 MG/4 ML VIAL IV PRN ×4 (10:46→20:33)
[2020-07-12] MEDS ORDERED: LEVALBUTEROL HCL 0.63 MG/3 ML NEB NEB PRN (15:36)
[2020-07-12] MEDS ORDERED: IPRATROPIUM BROMIDE NEB SOLN 0.02% 2.5 ML VIAL INH PRN (15:36)
--- NOTE | 2020-07-12 19:03 | Hospitalist Progress Note ---
Date of Service July 12, 2020 Assessment & Plan (1) Alcohol withdrawal: (2) Alcohol abuse: This is a 40-year-old male who has significant past medical history of asthma, alcohol abuse, tobacco abuse, schizophrenia, history of seizure secondary to alcohol withdrawal who presents to ED for request of alcohol detoxification. Mild alcohol withdrawal symptoms at this time Continue alcohol withdrawal protocol including Librium taper, Ativan as needed Continue to monitor closely (3) Tobacco abuse: nicotine patch ordered encourage smoking cessation (4) Schizophrenia: continue lithium check lithium level: 0.6 (5) Asthma: Acute bronchitis Chest x-ray: No pneumonia COVID screen: Negative Patient's symptoms improving Continue Advair, doxycycline, PRN nebs (6) DVT prophylaxis: SCD/TEDS, encourage ambulation Plan of care discussed with patient and his at the bedside, in detail and at length All questions were answered They are understanding, agreeable, comfortable plan of care Disposition Patient prefers to continue outpatient therapy for alcoholism Anticipate discharge to home when medically stable Admission and Anticipated Discharge Date Admission Date: July 11, 2020 Subjective Follow-up for alcohol withdrawal, acute bronchitis, other problems noted below Seen resting in bed, sitting up, not in distress, comfortable, very pleasant States he feels slightly better compared to yesterday Still having mild tremors, but no confusion hallucinations Breathing also improved, cough improved Denies headache, chest pain, palpitations, dizziness No other symptoms Review of Systems Review of Systems: All systems reviewed & are unremarkable except as noted in Subjective Physical Exam Physical Exam: General- oriented x 3, not in distress, speaks in sentences with no effort or accessory muscle use Eyes- anicteric Neck- no JVD Lungs- clear breath sounds bilaterally, crackles or wheezing, good air entry bilaterally Heart- normal rate, regular rhythm; no murmurs Abdomen- normal bowel sounds, nondistended, soft, nontender Extremities-mild hand tremors, no pretibial edema, no calf tenderness Neuro- alert, oriented x 3; no gross focal neurologic deficits Skin- warm & dry Results & Data Results & Data ([facility]) Vital Signs (Past 12 Hours) Vital Signs Temp Pulse Resp BP Pulse Ox 07/12/20 15:37 36.6 C 81 18 161/102 H 97 07/12/20 15:00 80 16 98 07/12/20 11:36 36.5 C 97 H 17 149/99 H 97 07/12/20 11:15 68 16 97 07/12/20 07:41 36.8 C 80 18 150/101 H 97 Laboratory Results Laboratory Results - last 24 hr 07/11/20 07/11/20 07/11/20 18:35 20:30 20:30 WBC RBC Hgb Hct MCV MCH MCHC RDW Std Deviation RDW Coeff of Sumeet Plt Count MPV Sodium Potassium Chloride Carbon Dioxide Anion Gap BUN Creatinine Est Cr Clr Drug Dosing Est GFR ( Amer) Est GFR (Non-Af Amer) BUN/Creatinine Ratio Glucose Estimat Average Glucose Hemoglobin A1c Calcium Magnesium Total Bilirubin AST ALT Alkaline Phosphatase Total Protein Albumin Globulin Albumin/Globulin Ratio Stl C. diff Tox B Gene [place] 0.6 COVID-19 Eval Order Covid19 Done at [facility] COVID-19 PCR NEGATIVE 07/12/20 07/12/20 07/12/20 07:21 07:21 07:21 WBC 4.34 L RBC 4.52 L Hgb 14.6 Hct 43.6 MCV 96.5 MCH 32.3 MCHC 33.5 RDW Std Deviation 45.1 RDW Coeff of Sumeet 12.7 Plt Count 130 MPV 9.4 Sodium 141 Potassium 3.9 Chloride 108 H Carbon Dioxide 24 Anion Gap 8.0 BUN 10 Creatinine 0.66 Est Cr Clr Drug Dosing 146.8 Est GFR ( Amer) 142.1 Est GFR (Non-Af Amer) 122.6 BUN/Creatinine Ratio 15.6 Glucose 76 Estimat Average Glucose 97 Hemoglobin A1c 5.0 Calcium 8.8 Magnesium 2.0 Total Bilirubin 0.5 AST 76 H ALT 39 Alkaline Phosphatase 70 Total Protein 6.9 Albumin 3.6 Globulin 3.3 Albumin/Globulin Ratio 1.1 Stl C. diff Tox B Gene [place] COVID-19 Eval Order COVID-19 PCR 07/12/20 08:50 WBC RBC Hgb Hct MCV MCH MCHC RDW Std Deviation RDW Coeff of Sumeet Plt Count MPV Sodium Potassium Chloride Carbon Dioxide Anion Gap BUN Creatinine Est Cr Clr Drug Dosing Est GFR ( Amer) Est GFR (Non-Af Amer) BUN/Creatinine Ratio Glucose Estimat Average Glucose Hemoglobin A1c Calcium Magnesium Total Bilirubin AST ALT Alkaline Phosphatase Total Protein Albumin Globulin Albumin/Globulin Ratio Stl C. diff Tox B Gene Negative Cdiff Gene [place] COVID-19 Eval Order COVID-19 PCR (1) Alcohol withdrawal Complication of substance-induced condition: uncomplicated Qualified Code(s): F10.230 - Alcohol dependence with withdrawal, uncomplicated
[2020-07-13] MEDS: chlordiazePOXIDE HCl 25 MG CAP PO SCH ×2 (03:14→10:24)
[2020-07-13] MEDS: LORazepam 2 MG/4 ML VIAL IV PRN (03:18)
[2020-07-13] MEDS: LITHIUM CARBONATE 450 MG TABCR PO SCH (08:31)
[2020-07-13] MEDS: FLUTICASONE/VILANTEROL 200/25MCG 14 PUFFS/INHALER INH SCH (08:32)
[2020-07-13] MEDS: THIAMINE HCL 100 MG TAB PO SCH (08:32)
[2020-07-13] MEDS: NICOTINE 21 MG/24 HR TDSY TD SCH (08:33)
[2020-07-13] MEDS: DOXYCYCLINE HYCLATE 100 MG CAP PO SCH (08:33)
[2020-07-13] MEDS: FOLIC ACID 1 MG TAB PO SCH (08:33)
[2020-07-13 15:51] LABS: Marijuana Quant, GCMS Urine 81 ng/mL (<5)
--- NOTE | 2020-07-13 19:33 | Hospitalist Progress Note ---
Date of Service delayed entry date of service note below July 13, 2020 Assessment & Plan (1) Alcohol abuse: (2) Alcohol withdrawal: This is a 40-year-old male who has significant past medical history of asthma, alcohol abuse, tobacco abuse, schizophrenia, history of seizure secondary to alcohol withdrawal who presents to ED for request of alcohol detoxification. placed on alcohol withdrawal protocol including Librium taper, Ativan as needed patient only had Mild alcohol withdrawal symptoms while admitted no overt signs of Delirium Tremens discharge home on 2 more days of Librium taper patient's will monitor patient closely, advised to return to the ER if with worsening of symptoms encouraged Alcohol Cessation, prefers to continue outpatient Alcohol Cessation programd (3) Asthma: with Acute bronchitis (+) productive cough with wheezing on presentation Chest x-ray: No pneumonia COVID screen: Negative started on Advair, doxycycline, PRN nebs symptoms markedly improved discharge on Advair, Doxycycline course, PRN nebs (already has at home) (4) Tobacco abuse: nicotine patch ordered encourage smoking cessation (5) Schizophrenia: continue lithium lithium level: 0.6 (6) DVT prophylaxis: SCD/TEDS, encourage ambulation Plan of care discussed with patient and his at the bedside, in detail and at length All questions were answered They are understanding, agreeable, comfortable plan of care Disposition Patient prefers to continue outpatient therapy for alcoholism Anticipate discharge to home when medically stable Admission and Anticipated Discharge Date Admission Date: July 11, 2020 Subjective ff up for alcohol withdrawal, Acute Bronchitis seen walking in the hallways, comfortable seen at his bedside, not in distress, calm, not in distress minimal anxiety, denies tremors, confusion, hallucinations, sweating states shortness of breath has resolved, denies cough no chest pain, headache, dizziness, palpitations no problems ambulating denies other symptoms states he is ready and would like to be discharged patient's Jeannie at bedside, she is agreeable for discharge as well Review of Systems Review of Systems: All systems reviewed & are unremarkable except as noted in Subjective Physical Exam Physical Exam: General- oriented x 3, not in distress, speaks in sentences with no effort or accessory muscle use Eyes- anicteric Neck- no JVD Lungs- clear breath sounds bilaterally minimal wheeze on the right base clear on the left Heart- normal rate, regular rhythm; no murmurs Abdomen- normal bowel sounds, nondistended, soft, nontender Extremities- no pretibial edema, no calf tenderness no tremors Neuro- alert, oriented x 3; no gross focal neurologic deficits Skin- warm & dry Results & Data Results & Data ([facility]) Vital Signs (Past 12 Hours) Vital Signs Temp Pulse Resp BP Pulse Ox 07/13/20 13:00 36.6 C 79 22 135/97 98 07/13/20 11:34 36.6 C 79 22 135/97 98 Laboratory Results noted and reviewed (1) Alcohol withdrawal Complication of substance-induced condition: uncomplicated Qualified Code(s): F10.230 - Alcohol dependence with withdrawal, uncomplicated
--- NOTE | 2020-07-17 10:43 | Discharge Summary ---
Date of Service July 17, 2020 Admission HPI Per Admitting Provider This is a 40-year-old male who has significant past medical history of asthma, alcohol abuse, tobacco abuse, schizophrenia, history of seizure secondary to alcohol withdrawal who presents to ED for request of alcohol detoxification. 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 He states he used to drink 14-16 beers daily, switch to wine because it was easier. He has been drinking 12-14 6 ounce glasses of wine from 6 AM to 3:30 PM and then will go to sleep. He will wake up and repeat the same routine the next day. His last drink today was 1:15 PM. He was trying to self wean and w ithdrawal on his own, but began to feel more palpitations and opted to seek ED. He currently complains of feeling sweaty and tremulous. He admits to having a seizure during prior withdrawal when he was put in [facility] and detox there. He does admit to having schizophrenia and is on 1350 mg of lithium daily. He also complains of diarrhea for the past 2 to 3 weeks. He has 8-10 episodes of loose watery stool daily. He attributes it to all of the sugar from his alcohol. He does have a prior history of C. difficile and is requesting C. difficile testing. He denies any fever, chills, sweats, lightheadedness, dizziness, chest pain, shortness of breath, cough, emesis, abdominal pain, dysuria, increased urgency or frequency with urination. He is complaining of heart palpitations, nausea and diaphoresis. Overall decreased appetite. In ED patient remained hemodynamically stable but during my evaluation was becoming tachycardic and mildly hypertensive. His CBC and CMP were generally unremarkable except for elevated glucose 141, AST 98. Drug tox being positive for marijuana and ethyl alcohol elevated at 284.4. He received 1 L of IVF as well as 1 L banana bag in ED. He was prescribed 1 g of Ativan, but this has not yet been administered. Admission Exam Per Admitting Provider Physical Exam: Constitutional: WD/WN, diaphoretic, vitals as above, NAD, sitting up in bed, pleasant, conversing easily Head: Normocephalic, Atraumatic Eyes: PERRL, conjunctivae normal, anicteric sclerae ENMT: external ear and nose normal, oropharynx normal Neck: trachea midline, no thyromegaly normal visual inspection Respiratory: normal respiratory effort, lungs clear to auscultation, no wheeze, rales, rhonchi. Normal insp/exp effort, no accessory muscle use Cardiovascular: Tachycardic rate, regular rhythm, no murmur, no edema Vessels: no JVD or carotid bruit Chest: normal inspection of chest Abdomen: normal bowel sounds, soft, nontender, no hepatosplenomegaly Musculoskeletal: no cyanosis or clubbing, extremities motor strength 5/5 Skin: no rashes, warm and dry normal turgor Neurologic: tremulous, PERRL, EOMI, accommodation nl, no face palsy, no dysarthria CN's II-XI intact bilaterally and moves all extremities Psychiatric: A+Ox3, euthymic affect Lymphatic: no cervical or axillary lymphadenopathy : deferred Principal Diagnosis Alcohol Withdrawal Acute Bronchitis Discharge Exam General- oriented x 3, not in distress, speaks in sentences with no effort or accessory muscle use Eyes- anicteric Neck- no JVD Lungs- clear breath sounds bilaterally minimal wheeze on the right base clear on the left Heart- normal rate, regular rhythm; no murmurs Abdomen- normal bowel sounds, nondistended, soft, nontender Extremities- no pretibial edema, no calf tenderness no tremors Neuro- alert, oriented x 3; no gross focal neurologic deficits Skin- warm & dry Discharge Data Allergies Allergy/AdvReac Type Severity Reaction Status Date / Time Penicillins Allergy Mild . Verified 07/11/20 14:31 Consultations 07/11/20 16:31 ED Decision to Admit Stat 07/11/20 18:20 Consult Case Management - Discharge Planning Routine Hospital Course (1) Alcohol abuse: This is a 40-year-old male who has significant past medical history of asthma, alcohol abuse, tobacco abuse, schizophrenia, history of seizure secondary to alcohol withdrawal who presents to ED for request of alcohol detoxification. Mild alcohol withdrawal symptoms at this time Continue alcohol withdrawal protocol including Librium taper, Ativan as needed Continue to monitor closely (2) Alcohol withdrawal: This is a 40-year-old male who has significant past medical history of asthma, alcohol abuse, tobacco abuse, schizophrenia, history of seizure secondary to alcohol withdrawal who presents to ED for request of alcohol detoxification. placed on alcohol withdrawal protocol including Librium taper, Ativan as needed patient only had Mild alcohol withdrawal symptoms while admitted no overt signs of Delirium Tremens discharge home on 2 more days of Librium taper patient's will monitor patient closely, advised to return to the ER if with worsening of symptoms encouraged Alcohol Cessation, prefers to continue outpatient Alcohol Cessation programd (3) Asthma: with Acute bronchitis (+) productive cough with wheezing on presentation Chest x-ray: No pneumonia COVID screen: Negative started on Advair, doxycycline, PRN nebs symptoms markedly improved discharge on Advair, Doxycycline course, PRN nebs (already has at home) (4) Tobacco abuse: nicotine patch ordered encourage smoking cessation (5) Schizophrenia: continue lithium lithium level: 0.6 (6) DVT prophylaxis: SCD/TEDS, encourage ambulation Plan of care discussed with patient and his at the bedside, in detail and at length All questions were answered They are understanding, agreeable, comfortable plan of care Disposition Patient prefers to continue outpatient therapy for alcoholism D/C home ff up with PCP in 1 week Total Time Total Time Spent Total Time Spent (In Minutes): > 30 minutes Discharge Plan Discharge Items Patient Disposition: Home - Self-Care Reason For Visit: ETOH WITHDRAWAL Discharge Diagnosis: ALCOHOL WITHDRAWAL Activity: As commented below Activity Comment: GRADUALLY TOLERATED, AVOID HEAVY EXERTION Lifting: Wait until after follow-up appointment Bathing Comment: NO BATHING IN THE TUB, SWIMMING Exercise/Sports: Wait until after follow-up appointment Driving/Machine Use: NO DRIVING UNTIL RE-EVALUATED AND ALLOWEDBY PRIMARY CARE PHYSICIAN Non-emergency contact: Primary Care Provider Call non-emergency contact if: you have any medication questions and you have a fever Follow-up/Referrals: Christian Yusuf MD [Primary Care Provider] - 07/17/20 11:00 am Diet: Regular Addtl Attending Provider Instructions: PLEASE REVIEW YOUR NEW MEDICATION LIST AND FOLLOW INSTRUCTIONS CAREFULLY. 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 FOLLOW UP WITH PRIMARY CARE PHYSICIAN IN 1 WEEK. DRINK PLENTY OF WATER, STAY WELL HYDRATED. Pending Studies at Discharge: No Stand-Alone Forms: My [facility] [employer], Smoking Cessation, Suicide Prevention Resources Medications and DC Order Prescriptions: New doxycycline hyclate 100 mg Capsule 100 mg PO BID Qty: 10 RF: 0 chlordiazepoxide HCl 10 mg Capsule 10 mg PO Q12H Qty: 2 RF: 0 chlordiazepoxide HCl 25 mg Capsule 25 mg PO Q8H Qty: 3 RF: 0 thiamine HCl (vitamin B1) [Vitamin B-1] 100 mg Tablet 100 mg PO QAM Qty: 14 RF: 0 folic acid 1 mg Tablet 1 mg PO QAM Qty: 14 RF: 0 Breo Ellipta 200-25 mcg/dose Blister With Device 1 puff inhalation DAILY Qty: 1 RF: 2 multivitamin Capsule 1 cap PO DAILY Qty: 30 RF: 0 Continued lithium carbonate 450 mg tablet extended release 1,350 mg PO DAILY RF: 0 Discharge Orders: Discharge Order (Routine); Ordered 07/13/20 Ordered By: Juan Daniel Daniels Admission Data Admit Date/Time: 07/11/20 16:49 Attending Provider: Juan Daniel Daniels Admit Provider: Juan Daniel Daniels Primary Care Provider: Christian Yusuf Other Providers: Juan Daniel Daniels Other Interventions: Discharge Summary Assessment (RN) Last Done: 07/13/20 13:00
== END 2020-07-13 13:13 | disposition home or self-care (01) | DRG 897 ==
LOC: ED 13:25 → 2E 16:49

== ENCOUNTER 2020-08-25 15:59 | Inpatient (IN) ==
[2020-08-25] MEDS ORDERED: SODIUM CHLORIDE 0.9% 1000ML 1,000 ML IV SCH (16:30)
[2020-08-25] MEDS ORDERED: MULTI-VITAMIN INFUSION 10 ML, THIAMINE HCL 100 MG, FOLIC ACID 1 MG in SODIUM CHLORIDE 0... IV ONE (16:30)
--- NOTE | 2020-08-25 16:32 | Emergency Department Note ---
Impression & Plan Alcohol abuse ED Provider Note NAME: SAIMA TAN AGE: 40 SEX: M : 1980 ARRIVES VIA: Walk-In INFORMANT: Patient, the patient's [id number] ED PROVIDER(S): Beni Fatima DO CHIEF COMPLAINT: Requesting detox HPI: The patient is a 40-year-old male who presented to the emergency department for alcohol detox. The patient was sent at the request of his primary care physician who is very concerned about the patient's alcohol use. The patient is somewhat belligerent and sometimes answers questions appropriately but then other times does not feel that he should be honest with me. The patient's [id number] does come to the emergency department with him and is very reasonable. He does help with some of the history. The patient has a history of chronic alcohol abuse. He states that he drinks approximately a gallon of wine every day. He once went through detox approximately 5 years ago and was doing well until recently. The patient states initially that he started drinking again 4 years ago but then also states that he only started drinking again recently. He denies having any chest pain. He denies having any nausea or vomiting. He does have a history of seizures but states he has had no recent seizures. He denies having any falls. The patient keeps saying "I really fucked up" as a reason to why he is here for detox. The patient denies having any suicidal homicidal ideation. He states that he has been compliant with his outpatient medication regimen. He does have a history of tobacco use as well. ROS: See above HPI for pertinent positives & negatives. A total of 10 systems reviewed and were otherwise negative. PAST MEDICAL HISTORY: See Below PAST SURGICAL HISTORY: See Below FAMILY HISTORY: See Below SOCIAL HISTORY: See Below HOME MEDICATIONS: See Below ALLERGIES: See Below VITALS: See Below PHYSICAL EXAMINATION: GENERAL: The patient is awake and alert. His speech is slurred. He answers questions intermittently. EYES: The conjunctivae are clear. The pupils are round and reactive. EARS, NOSE, MOUTH AND THROAT: The nose is without any evidence of any deformity. Mucous membranes are moist. NECK: The neck is nontender and supple. RESPIRATORY: Normal respiratory effort is noted there is no evidence of wheezing rhonchi or rales CARDIOVASCULAR: Regular rate and rhythm noted there no murmurs rubs or gallops normal S1 normal S2. GASTROINTESTINAL: The abdomen is soft. Abdomen is nontender. MUSCULOSKELETAL/EXTREMITIES: There is no evidence of gross deformity full range of motion is noted in the hips and shoulders. SKIN: There is no obvious evidence of any rash. There are no petechiae, pallor or cyanosis noted. NEUROLOGIC: Patient is awake alert and oriented x3 PSYCH: The patient makes poor eye contact and appears very guarded. Currently the patient is denying any suicidal homicidal ideation. MEDICAL DECISION MAKING: The patient is a 40-year-old male who presented to the emergency department for mental health evaluation. The patient arrived with his [id number] who does help with most of the history. The patient has had some rough times recently. He does have a history of underlying alcoholism. He presented to the emergency department requesting detox. The patient initially would not allow us to draw blood work. He did not wish to have an IV line. The patient became very b elligerent and combative with some of the staff. They were uncomfortable managing for him. He did not wish to have any further work-up and requested to be discharged. The patient was clinically intoxicated so we discussed this with his [id number] who did fill out a petition for 302 so we could hold the patient and continue to do his work-up. Unfortunately when the 302 was discussed with the delegate it was not felt to be consistent with a full 302 so no warrant was issued. We had a discussion in the triage overflow with the [id number]. He was very concerned about his family member and did not wish to have him discharged from our facility. He is very concerned because the patient's had multiple DUIs recently. He is also had very severe withdrawal when he tried to stop drinking in the past. Luckily, Dr. Fields is here [place] with the patient's condition and is managed his care as an outpatient. He came to the triage overflow and we discussed the plan for keeping the patient in our facility for inpatient detox given his very severe withdrawal reactions in the past. The patient was agreeable to this and ultimately did allow us to draw laboratory studies. He was found to have a very elevated alcohol level. He was admitted to the [facility] service for further inpatient detox and management of withdrawal. Triage Nursing notes reviewed. Prior medical records reviewed Vital Signs: reviewed and remarkable for elevated blood pressure. Differential diagnosis: Mood disorder, infection, hypoglycemia, electrolyte abnormalities, cardiac sources, intracerebral event, toxicologic, trauma, neurologic, as well as other pathologies. ER treatment provided: See below Diagnostics interpreted by me: ECG: EKG was obtained in the emergency department. My interpretation is normal sinus rhythm at 77 bpm. There is no ectopy. There was no acute ST segment abnormalities noted. This was compared to a tracing from October 04, 2016. No significant changes were noted. Laboratory studies: As stated above and show below. Imaging studies: See below Consultation(s): I discussed this case with the [facility] hospitalist. Past Med/Surg History Medical History (Updated 08/25/20 @ 19:26 by Kishor Aguero DO) Alcohol abuse Asthma History of seizure Secondary to alcohol withdrawal Schizophrenia Tobacco abuse Surgical History No pertinent past surgical history Family History Mother , Lung Ca Hypertension Cancer Father Colon cancer Diabetes Brother Diabetes Brother Colorectal cancer Alcohol abuse Sister Alcohol abuse Social History Smoking Status: Current every day smoker Tobacco Type: Cigarettes packs per day: 1; Years Smoked: 22; Cigarettes Per Day: 30; Second Hand Exposure: No; Hx Alcohol Use: Yes Alcohol type: beer and wine Alcohol Intake Frequency Comment: Daily, 12 to 14 glasses of wine daily Hx Substance Use: Yes Preferred Language: Bolivian Communication Ability: Effective Beliefs That Will Affect Care: None marital status: Current Living Situation: Spouse current occupational status: employed Feels Safe at Home: Yes Allergies Allergies Allergy/AdvReac Type Severity Reaction Status Date / Time Penicillins Allergy Mild . Verified 08/01/20 22:23 Home Meds Home Medications Medication Instructions Recorded Confirmed lithium carbonate 1,350 mg PO DAILY 07/11/20 08/01/20 sildenafil [Viagra] 0 mg PO UD 08/01/20 08/01/20 Previous Rx's Medication Instructions Recorded fluticasone furoate-vilanterol 1 puff INHALATION DAILY #1 ea 07/13/20 [Breo Ellipta] folic acid 1 mg PO QAM #14 tab 09/27/20 lorazepam [Ativan] 1 mg PO Q8H PRN #9 tab 08/22/20 Results & Data (ED) Vital Signs Vital Signs - 24 hr 08/25/20 16:15 Temperature 37.0 C Temperature Source Oral Pulse Rate 99 H Respiratory Rate 20 Respiratory Effort / Characteristics Non-Labored Respiratory Depth Normal Respiratory Pattern Regular Blood Pressure 143/95 H Blood Pressure Mean 111 Blood Pressure Position Sitting Pulse Oximetry 96 Oxygen Delivery Method Room Air Sepsis Recent Fever Within 48 Hours No Sepsis New/Unexplained Change in Mental Status No Sepsis Action Taken by Nursing No Action Required Home Medications Current Medication List: was personally reviewed by me Laboratory Data Attestation: I reviewed the patient's lab results. Result diagrams: 08/25/20 19:30 08/25/20 19:30 Lab Results 08/25/20 08/25/20 08/25/20 Range/Units 19:30 19:30 19:30 WBC 6.01 (4.8-10.8) K/uL RBC 4.99 (4.7-6.1) M/uL Hgb 16.7 (14.0-18.0) g/dL Hct 47.9 (42-52) % MCV 96.0 (80-100) fL MCH 33.5 (25-34) pg MCHC 34.9 (32-36) g/dL RDW Std Deviation 42.9 (36.4-46.3) fL RDW Coeff of Sumeet 12.3 (11.5-14.5) % Plt Count 215 (130-400) K/uL MPV 9.4 (7.4-10.4) fL Immature Gran % (Auto) 0.3 % Neut % (Auto) 47.3 % Lymph % (Auto) 44.8 % Grafton % (Auto) 5.2 % Eos % (Auto) 2.2 % Baso % (Auto) 0.2 % Neut # (Auto) 2.85 (1.4-6.5) K/uL Lymph # (Auto) 2.69 (1.2-3.4) K/uL G[place]on # (Auto) 0.31 (0.11-0.59) K/uL Eos # (Auto) 0.13 (0-0.5) K/uL Baso # (Auto) 0.01 (0-0.2) K/uL Immature Gran # (Auto) 0.02 (0.00-0.02) K/uL PT 10.9 (9.0-12.0) Seconds INR 1.0 (0.9-1.1) APTT 26.4 (21.0-31.0) Seconds PTT Ratio 0.9 Sodium 145 (136-145) mmol/L Potassium 4.4 (3.5-5.1) mmol/L Chloride 112 H (98-107) mmol/L Carbon Dioxide 29 (21-32) mmol/L Anion Gap 4.0 (3-11) BUN 6 L (7-18) mg/dl Creatinine 0.78 (0.6-1.4) mg/dl Est Cr Clr Drug Dosing 124.2 ml/min Est GFR ( Amer) 132.7 Est GFR (Non-Af Amer) 114.5 BUN/Creatinine Ratio 7.8 L (10-20) Glucose 90 (70-99) mg/dl Calcium 8.9 (8.5-10.1) mg/dl Magnesium 2.6 H (1.8-2.4) mg/dl Total Bilirubin 0.2 (0.2-1) mg/dl AST 64 H (15-37) U/L ALT 48 (12-78) U/L Alkaline Phosphatase 78 (45-117) U/L Troponin I < 0.015 (0-0.045) ng/ml Total Protein 8.2 (6.4-8.2) gm/dl Albumin 4.2 (3.4-5.0) gm/dl Globulin 4.0 (2.5-4.0) gm/dl Albumin/Globulin Ratio 1.1 (0.9-2) Salicylates (2.8-20) mg/dl Acetaminophen (10-30) ug/ml Pearcy (0.6-1.2) mmol/L Ethyl Alcohol mg/dL (0-3) mg/dl 08/25/20 08/25/20 Range/Units 19:30 19:30 WBC (4.8-10.8) K/uL RBC (4.7-6.1) M/uL Hgb (14.0-18.0) g/dL Hct (42-52) % MCV (80-100) fL MCH (25-34) pg MCHC (32-36) g/dL RDW Std Deviation (36.4-46.3) fL RDW Coeff of Sumeet (11.5-14.5) % Plt Count (130-400) K/uL MPV (7.4-10.4) fL Immature Gran % (Auto) % Neut % (Auto) % Lymph % (Auto) % G[place]on % (Auto) % Eos % (Auto) % Baso % (Auto) % Neut # (Auto) (1.4-6.5) K/uL Lymph # (Auto) (1.2-3.4) K/uL G[place]on # (Auto) (0.11-0.59) K/uL Eos # (Auto) (0-0.5) K/uL Baso # (Auto) (0-0.2) K/uL Immature Gran # (Auto) (0.00-0.02) K/uL PT (9.0-12.0) Seconds INR (0.9-1.1) APTT (21.0-31.0) Seconds PTT Ratio Sodium (136-145) mmol/L Potassium (3.5-5.1) mmol/L Chloride (98-107) mmol/L Carbon Dioxide (21-32) mmol/L Anion Gap (3-11) BUN (7-18) mg/dl Creatinine (0.6-1.4) mg/dl Est Cr Clr Drug Dosing ml/min Est GFR ( Amer) Est GFR (Non-Af Amer) BUN/Creatinine Ratio (10-20) Glucose (70-99) mg/dl Calcium (8.5-10.1) mg/dl Magnesium (1.8-2.4) mg/dl Total Bilirubin (0.2-1) mg/dl AST (15-37) U/L ALT (12-78) U/L Alkaline Phosphatase (45-117) U/L Troponin I (0-0.045) ng/ml Total Protein (6.4-8.2) gm/dl Albumin (3.4-5.0) gm/dl Globulin (2.5-4.0) gm/dl Albumin/Globulin Ratio (0.9-2) Salicylates 3.7 (2.8-20) mg/dl Acetaminophen < 2 L (10-30) ug/ml Pearcy 0.2 L (0.6-1.2) mmol/L Ethyl Alcohol mg/dL 311.0 H (0-3) mg/dl Administered Medications Chlordiazepoxide HCl (Chlordiazepoxide 50mg Starting Dose) 50 mg PO Q6H EMANUEL; Protocol Stop: 08/26/20 14:46 Last Admin: 08/25/20 21:35 Dose: 50 mg Documented by: [id number] Discontinued Medications Sodium Chloride (Nss 1000ml) 1,000 mls @ 999 mls/hr IV .Q1H1M EMANUEL Stop: 08/25/20 17:30 Last Infusion: 08/25/20 21:32 Dose: 0 mls/hr Documented by: [id number] Admin: 08/25/20 20:04 Dose: 999 mls/hr Documented by: [id number] Multivitamins 10 ml/ Thiamine HCl 100 mg/ Folic Acid 1 mg/Sodium Chloride 1,011.2 mls @ 1,011.2 mls/hr IV .Q1H ONE Stop: 08/25/20 17:29 Last Admin: 08/25/20 20:38 Dose: 1,011.2 mls/hr Documented by: [id number] Nicotine (Nicotine 21 Mg/24 Hr Tdsy) Confirm Administered Dose 21 mg TD .STK-MED ONE Stop: 08/25/20 20:32 Last Admin: 08/25/20 20:39 Dose: 21 mg Documented by: [id number] Imaging Data Radiologist's Impression: Patient: SAIMA TAN Date: 08/25/20#: [id number]: [address] [facility] ID:[id number]: Date: 1980[facility] Zip: [place], [place] [address]Tvf: 40Location: EDSex: MRoom/Bed:Att Phy:Diagnosis: ALCOHOL DETOX, INTOXICATEDPri Phy: PCP,NOService Date: 08/25/20[facility] Phy:Interpreting Phy: Kaushal Ibarra [facility] Phy: Ordering Phy: Beni Fatima DO cc: ~ SINGLE VIEW CHEST CLINICAL HISTORY: Medical clearance. FINDINGS: An AP, portable, upright chest radiograph is compared to study dated 07/11/2020. The examination is degraded by portable technique and patient rotation. The cardiomediastinal silhouette is unremarkable. The lungs and pleural spaces are clear. No pneumothorax is seen. The bony thorax is grossly intact. IMPRESSION: No active disease in the chest. ACT 112: Negative or not required by law. Electronically signed by: Kaushal Ibarra M.D. 08/25/2020 7:21 PM Dictated: 08/25/201920Transcribed: 08/25/201920 Blood Pressure Blood Pressure Findings: Normal blood pressure Discharge Plan Visit Data Chief Complaint: Detox Request Stated Complaint: ALCOHOL DETOX, INTOXICATED ED Provider: Beni Fatima Discharge Problem: Alcohol abuse Patient Disposition: Admitted As Inpatient Condition: Good Discharge Instructions Interventions: ED Discharge Assessment Last Done: 08/25/20 20:48
[2020-08-25] MEDS ORDERED: chlordiazePOXIDE ALCOHOL WITHDRAWL 50MG PO STA (19:19)
--- NOTE | 2020-08-25 19:23 | XRay Report ---
SINGLE VIEW CHEST CLINICAL HISTORY: Medical clearance. FINDINGS: An AP, portable, upright chest radiograph is compared to study dated 07/11/2020. The examina tion is degraded by portable technique and patient rotation. The cardiomediastinal silhouette is unr emarkable. The lungs and pleural spaces are clear. No pneumothorax is seen. The bony thorax is grossl y intact. IMPRESSION: No active disease in the chest. ACT 112: Negative or not required by law. Electronically signed by: Kaushal Ibarra M.D. 08/25/2020 7:21 PM
--- NOTE | 2020-08-25 19:27 | History & Physical Report ---
Date of Service August 25, 2020 Assessment & Plan (1) Alcohol withdrawal: while it appears most recent withdrawal was fortunately mild, has had seizures before and prior more severe DTs - not safe for trial at home given his hx. will admit and initiate withdrawal protocol. given both significant amount of EtoH and benzodiazepines - will be fairly aggressive w dosing at first to help mitigate severe withdrawal and/or seizures if possible, and then taper depending on how he progresses thiamine, folate does have hx of abuse of other substances but was quite forthcoming and right now appears that EtOH and benzos are only ones with enough frequency/chronicity to be at risk for withdrawal (2) Asthma: rhonchorous lungs - suspect uncontrolled asthma (likely missing inhalers, definitely still smoking > 1ppd) - covid screen, resume home inhaler, albuterol prn (3) Schizophrenia: lithium, await level (4) DVT prophylaxis: ambulation (5) Discharge planning issues: admit to [facility] hospitalist service (pt requests me as his hospitalist) med surg for now - although if withdrawal worsens then could require transfer to tele History of Present Illness Chief Complaint: EtOH withdrawal Primary Care Provider: NO PCP 40 y/o male known to me from when i was in office. long hx etoh abuse - was sober for about 5 years - recent fairly severe relapse - EtOH, ativan, librium all in large amounts. has had prior bad withdrawal. wants help. regrets choices but feels like he has no control. also chills, cough, congestion. can't really tell if it's in his chest or upper airway. Allergies Allergy/AdvReac Type Severity Reaction Status Date / Time Penicillins Allergy Mild . Verified 08/01/20 22:23 Home Medications Home Medications Medication Instructions Recorded Confirmed Type lithium carbonate 1,350 mg PO DAILY 07/11/20 08/01/20 History fluticasone furoate-vilanterol 1 puff INHALATION DAILY #1 ea 07/13/20 08/01/20 Rx [Breo Ellipta] folic acid 1 mg PO QAM #14 tab 07/13/20 08/01/20 Rx sildenafil [Viagra] 0 mg PO UD 08/01/20 08/01/20 History lorazepam [Ativan] 1 mg PO Q8H PRN #9 tab 08/22/20 Rx Past Med/Surg History Medical History (Updated 08/25/20 @ 19:26 by Kishor Aguero DO) Alcohol abuse Asthma History of seizure Secondary to alcohol withdrawal Schizophrenia Tobacco abuse Surgical History No pertinent past surgical history Family History Mother , Lung Ca Hypertension Cancer Father Colon cancer Diabetes Brother Diabetes Brother Colorectal cancer Alcohol abuse Sister Alcohol abuse Social History Smoking Status: Current every day smoker Tobacco Type: Cigarettes packs per day: 1; Years Smoked: 22; Cigarettes Per Day: 30; Second Hand Exposure: No; Hx Alcohol Use: Yes Alcohol type: beer and wine Alcohol Intake Frequency Comment: Daily, 12 to 14 glasses of wine daily Hx Substance Use: Yes Preferred Language: French Communication Ability: Effective Beliefs That Will Affect Care: None marital status: Current Living Situation: Spouse current occupational status: employed Feels Safe at Home: Yes Review of Systems Review of Systems: All systems reviewed & are unremarkable except as noted in HPI & below Physical Exam Physical Exam: gen aaox3 quite intoxicated but alert - recognizes me right away despite my mask and shield. anxious but no physical distress. heent nc at mmm. cardio reg no r/m/g. lungs diffuse rhonchi throughout no wheeze no rales good effort no accessory muscles no conversational dyspnea. abd soft nd nt no masses or organomegaly noted, no guarding/rebound. ext no c/c/e no calf tenderness. neuro no focal deficits, cn 2-12 grossly intact gross motor/sensory intact. skin no rashes no pallor or icterus. mental good recent and remote recall, anxious mood/affect. Results & Data Results & Data ([facility]) Vital Signs (Past 12 Hours) Vital Signs Temp Pulse Resp BP Pulse Ox 08/25/20 16:15 98.6 F 99 H 20 143/95 H 96 PG Care Time/CCT Total # of Minutes Spent Total Time Spent with Patient: Total time spent is greater than 50% in coordination of care (as documented) at patient's floor/unit and/or counseling patient: Coding Level of Care Code 62793 Initial Inpt Care Lvl 3 Diagnoses Alcohol withdrawal F10.230 Complication of substance-induced condition: uncomplicated Asthma J45.909 Schizophrenia F20.9 DVT prophylaxis Z29.9 Discharge planning issues Z02.9 (1) Alcohol withdrawal Complication of substance-induced condition: uncomplicated Qualified Code(s): F10.230 - Alcohol dependence with withdrawal, uncomplicated
[2020-08-25 19:58] LABS: Basophils # (auto) 0.01 K/uL (0-0.2); Basophils % (auto) 0.2 %; Eosinophils # (auto) 0.13 K/uL (0-0.5); Eosinophils % (auto) 2.2 %; Hematocrit (blood only) 47.9 % (42-52); Hemoglobin 16.7 g/dL (14.0-18.0); Immature Granulocytes # (auto) 0.02 K/uL (0.00-0.02); Immature Granulocytes % (auto) 0.3 %; Lymphocytes # (auto) 2.69 K/uL (1.2-3.4); Lymphocytes % (auto) 44.8 %; Mean Corpuscular Hemoglobin 33.5 pg (25-34); Mean Corpuscular Hgb Conc 34.9 g/dL (32-36); Mean Platelet Volume 9.4 fL (7.4-10.4); Monocytes # (auto) 0.31 K/uL (0.11-0.59); Monocytes % (auto) 5.2 %; Neutrophils # (auto) 2.85 K/uL (1.4-6.5); Neutrophils % (auto) 47.3 %; Platelet Count 215 K/uL (130-400); RDW Coefficient of Variation 12.3 % (11.5-14.5); RDW Standard Deviation 42.9 fL (36.4-46.3); Red Blood Count 4.99 M/uL (4.7-6.1); White Blood Count 6.01 K/uL (4.8-10.8)
[2020-08-25 20:10] LABS: Partial Thromboplastin Ratio 0.9; Partial Thromboplastin Time 26.4 Seconds (21.0-31.0); Prothrombin Time 10.9 Seconds (9.0-12.0)
[2020-08-25 20:22] LABS: Alanine Aminotransferase 48 U/L (12-78); Albumin Level 4.2 gm/dl (3.4-5.0); Aspartate Aminotransferase 64 U/L (15-37); BUN Creatinine Ratio 7.8 (10-20); Blood Urea Nitrogen 6 mg/dl (7-18); Calcium 8.9 mg/dl (8.5-10.1); Carbon Dioxide 29 mmol/L (21-32); Chloride 112 mmol/L (98-107); Creatinine Clr Calc Pharmacy 124.2 ml/min; Est GFR (African American) 132.7; Est GFR (Non-African American) 114.5; Glucose 90 mg/dl (70-99); Magnesium 2.6 mg/dl (1.8-2.4); Potassium 4.4 mmol/L (3.5-5.1); Sodium 145 mmol/L (136-145)
[2020-08-25 20:27] LABS: Albumin Globulin Ratio 1.1 (0.9-2); Alkaline Phosphatase 78 U/L (45-117); Bilirubin,Total 0.2 mg/dl (0.2-1); Total Protein 8.2 gm/dl (6.4-8.2); Troponin I < 0.015 ng/ml (0-0.045)
[2020-08-25] MEDS ORDERED: NICOTINE 21 MG/24 HR TDSY TD ONE (20:31)
[2020-08-25 21:01] LABS: Lithium 0.2 mmol/L (0.6-1.2); Salicylate 3.7 mg/dl (2.8-20)
[2020-08-25 21:02] LABS: Acetaminophen < 2 ug/ml (10-30)
[2020-08-25] MEDS ORDERED: ONDANSETRON INJ 2 MG/ML 2 ML VIAL IV PRN (21:29)
[2020-08-25] MEDS ORDERED: ATIVAN IV ALCOHOL WITHDRAWL IV PRN (21:29)
[2020-08-25] MEDS ORDERED: MAGNESIUM HYDROXIDE SUSP 30 ML UDC PO PRN (21:29)
[2020-08-25] MEDS ORDERED: POLYETHYLENE (MIRALAX) 17 GM PACK PO PRN (21:29)
[2020-08-25] MEDS ORDERED: ALUMINUM/MAGNESIUM SUSP 30 ML UDC PO PRN (21:29)
[2020-08-25] MEDS ORDERED: chlordiazePOXIDE HCl 25 MG CAP PO SCH (21:29)
[2020-08-25] MEDS ORDERED: LORazepam 3 MG/6 ML VIAL IV PRN (21:29)
[2020-08-25] MEDS ORDERED: LORazepam 1 MG/2 ML VIAL IV PRN (21:29)
[2020-08-25] MEDS ORDERED: ALBUTEROL HFA 8 GM INHALER INH PRN (21:29)
[2020-08-25] MEDS ORDERED: LORazepam 1 MG TAB PO PRN (21:29)
[2020-08-25] MEDS: CHLORDIAZEPOXIDE 50MG STARTING DOSE PO SCH (21:35)
[2020-08-25] MEDS: NICOTINE 21 MG/24 HR TDSY TD SCH (22:07)
[2020-08-25] MEDS: THIAMINE HCL 100 MG in SYRINGE 9 ML IV SCH (22:25)
[2020-08-26] MEDS: CHLORDIAZEPOXIDE 50MG STARTING DOSE PO SCH ×3 (03:16→14:26)
[2020-08-26] MEDS ORDERED: NICOTINE 21 MG/24 HR TDSY TD SCH (09:00)
[2020-08-26] MEDS: THIAMINE HCL 100 MG in SYRINGE 9 ML IV SCH (09:15)
[2020-08-26] MEDS: LITHIUM CARBONATE 450 MG TABCR PO SCH (09:15)
[2020-08-26] MEDS: FOLIC ACID 1 MG TAB PO SCH (09:15)
[2020-08-26] MEDS: FLUTICASONE/VILANTEROL 200/25MCG 14 PUFFS/INHALER INH SCH (09:15)
[2020-08-26] MEDS: NICOTINE 21 MG/24 HR TDSY TD SCH (09:15)
[2020-08-26] MEDS: LORazepam 1 MG/2 ML VIAL IV PRN (10:48)
--- NOTE | 2020-08-26 11:44 | Electrocardiogram Report ---
Test Reason : Blood Pressure : / mmHG Vent. Rate : 077 BPM Atrial Rate : 077 BPM P-R Int : 154 ms QRS Dur : 094 ms QT Int : 404 ms P-R-T Axes : 049 011 042 degrees QTc Int : 457 ms Poor data quality, interpretation may be adversely affected Normal sinus rhythm Normal ECG When compared with ECG of 04-OCT-2016 01:40, No significant change was found Confirmed by Sarmad Pierce ([id number]) on 08/26/2020 11:44:25 AM Referred By: REFERRED SELF Confirmed By:Sarmad Pierce
[2020-08-26] MEDS ORDERED: LORazepam 0.5 MG/1 ML VIAL IV STA (12:14)
--- NOTE | 2020-08-26 13:20 | Hospitalist Progress Note ---
Date of Service August 26, 2020 Assessment & Plan (1) Alcohol withdrawal: Jonas Villafuerte is a 40 yo male with h/o alcohol use disorder, asthma, and schizophrenia (on Reese) who was admitted to [facility] on 08/25/2020 for alcohol withdrawal. Patient was abstinent for 5 years but relapsed 6 months ago with progressively worsening daily alcohol use as well as benzodiazepines. - h/o seizures before and prior more severe DTs - continue Librium taper - continue AWSS protocol, thiamine, folate - started home Naltrexone 50 mg PO Q24H today - patient desires to continue IOP, psychiatry, therapy, group therapy on discharge; does not want inpatient rehab (2) Asthma: - continue home inhaler, albuterol prn (3) Schizophrenia: - Continue home Reese - level 0.2 on 08/25 FEN/GI: safe tray DVT Prophylaxis: ambulation Code Status: Full code Disposition: med/surg Admission and Anticipated Discharge Date Admission Date: August 25, 2020 Supervising Physician Co-Signing Physician Notes I personally examined the patient and verified all feldman points of history and exam, discussed case, and agree with decision making with Dr Mckeon. feeling shaky today - on first visit fairly bad ~2hr after a dose of ativan. later in the day still shaky but less so. processsing all that is going on, feels he's definteily at a low point and not sure how he'll get better. does want to continue IOP and counselling -has evisits tomorrow vitals noted nad heent nc at mmm breathing unlabored no accessory muscles good effort. fine tremor and restlessness c/w EtOH withdrawal although less prominent on second visit today compared to first EtOH withdrawal - worse today - still concnering given his prior track record w some episodes of severe withdrawal - but right now doing reasonably well - and reassuring that he did not linearly worsen as the day progressed. ongoing med management. asthma - home inhalers schizophrenia - lithium (sig other notes that despite relapse in EtOH/drug abuse he actually remembered lithium almost all days, so low level not likely from nonadherence) - should have outpt f/u w psych that he regularly sees shortly after dc otherwise as above Subjective NAEO. No PRN Ativan required overnight. Last AWSS this morning was 3 although patient complained of severe generalized tremors and severe anxiety this morning when I saw him. Spoke with the patient extensively about his sources of support and plans for alcohol cessation. Denies fever/chills, SOB, chest pain/palpitations, N/V, abdominal pain. Review of Systems Review of Systems: Pertinent positives and negatives mentioned in HPI Physical Exam Constitutional: WD/WN, vitals as above appears anxious, hyperactive and tremulous Respiratory: normal respiratory effort, lungs clear to auscultation Cardiovascular: RRR, no murmur, no edema Gastrointestinal (Abdomen): normal bowel sounds, soft, nontender, no hepatosplenomegaly Neurologic: Motor/Sensory: + tremor (generalized with severe intention tremor) Psychiatric: A+Ox3, euthymic affect Results & Data Results & Data ([facility]) Vital Signs (Past 12 Hours) Vital Signs Temp Pulse Resp BP Pulse Ox 08/26/20 12:20 36.8 C 71 18 146/94 H 96 08/26/20 07:03 36.6 C 76 18 130/92 97 08/26/20 04:00 36.8 C 72 18 110/72 95 Resident Activity Tracking Resident Involvement: Resident Care Provided Care Provided: Adult Hospital Medicine (1) Alcohol withdrawal Complication of substance-induced condition: uncomplicated Qualified Code(s): F10.230 - Alcohol dependence with withdrawal, uncomplicated
[2020-08-26] MEDS: NALTREXONE HCL 50 MG TAB PO SCH (17:47)
[2020-08-26] MEDS ORDERED: ACETAMINOPHEN 325 MG TAB PO PRN (18:16)
--- NOTE | 2020-08-26 20:16 | Billing Data ---
Date of Service August 26, 2020 Coding Level of Care Code 18368 Subseq Hosp Care Lvl 3
[2020-08-26] MEDS: MELATONIN 3 MG TAB PO PRN (20:18)
[2020-08-26] MEDS: CHLORDIAZEPOXIDE 50MG 2ND DOSE PO SCH (23:24)
--- NOTE | 2020-08-27 06:57 | Hospitalist Progress Note ---
Date of Service August 27, 2020 Assessment & Plan (1) Alcohol withdrawal: Jonas Villafuerte is a 40 yo male with h/o alcohol use disorder, asthma, and schizophrenia (on [place]) who was admitted to [facility] on 08/25/2020 for alcohol withdrawal. Patient was abstinent for 5 years but relapsed 6 months ago with progressively worsening daily alcohol use as well as benzodiazepines. - h/o seizures before and prior more severe DTs - improved withdrawal symptoms today - moderate tremor and mild-moderate anxiety - continue Librium taper - continue AWSS protocol, thiamine, folate - continue home Naltrexone 50 mg PO Q24H - patient desires to continue IOP, psychiatry, therapy, group therapy on discharge; does not want inpatient rehab (2) Asthma: - continue home inhaler, albuterol prn (3) Schizophrenia: - Continue home [place] - subtherapeutic level 0.2 on 08/25 - patient and family reported consistent use of home [place] daily - recommend close follow-up with Psychiatrist after discharge for possible dose adjustment FEN/GI: safe tray DVT Prophylaxis: ambulation Code Status: Full code Disposition: med/surg, tentative discharge tomorrow if continues to improve Admission and Anticipated Discharge Date Admission Date: August 25, 2020 Supervising Physician Co-Signing Physician Notes I personally examined the patient and verified all feldman points of history and exam, discussed case, and agree with decision making with Dr Mckeon. less shaky, less anxious, more optimistic about future. already calling for job interviews vitals noted nad heent nc at mmm breathing unlabored no accessory muscles good effort. fine tremor improving, restlessness improving as well EtOH withdrawal - appears to be doing better - follow into tomorrow then hopefully home asthma - home inhalers, breathing OK schizophrenia - lithium (sig other notes that despite relapse in EtOH/drug abuse he actually remembered lithium almost all days, so low level not likely from nonadherence) - should have outpt f/u w psych that he regularly sees shortly after dc otherwise as above Subjective NAEO. No PRN Ativan required overnight. Patient reported improvement in tremors and mild anxiety this morning when I saw him. Spoke with the patient more about his sources of support and plans for alcohol cessation. Patient appears more motivated and in better spirits this morning. Denies fever/chills, SOB, chest pain/palpitations, N/V, abdominal pain. Review of Systems Review of Systems: Pertinent positives and negatives mentioned in HPI Physical Exam Constitutional: WD/WN, vitals as above Respiratory: normal respiratory effort, lungs clear to auscultation Cardiovascular: RRR, no murmur, no edema Gastrointestinal (Abdomen): normal bowel sounds, soft, nontender, no hepatosplenomegaly Neurologic: Motor/Sensory: + tremor (generalized with moderate intention tremor) Psychiatric: A+Ox3, euthymic affect Eye Contact: + fair eye contact Speech: normal rate/rhythm/volume of speech Affect: + depressed affect Mood: + dysphoric mood Hallucinations: no auditory hallucinations and no visual hallucinations Results & Data Results & Data ([facility]) Vital Signs (Past 12 Hours) Vital Signs Temp Pulse Resp BP Pulse Ox 08/27/20 03:56 36.5 C 59 L 16 117/74 97 08/26/20 23:45 36.6 C 61 16 118/78 96 Resident Activity Tracking Resident Involvement: Resident Care Provided Care Provided: Adult Hospital Medicine (1) Alcohol withdrawal Complication of substance-induced condition: uncomplicated Qualified Code(s): F10.230 - Alcohol dependence with withdrawal, uncomplicated
[2020-08-27] MEDS: CHLORDIAZEPOXIDE 50MG 2ND DOSE PO SCH ×2 (07:23→15:16)
[2020-08-27 08:11] LABS: Basophils # (auto) 0.01 K/uL (0-0.2); Basophils % (auto) 0.2 %; Eosinophils # (auto) 0.18 K/uL (0-0.5); Eosinophils % (auto) 2.8 %; Hematocrit (blood only) 43.4 % (42-52); Hemoglobin 14.6 g/dL (14.0-18.0); Immature Granulocytes # (auto) 0.01 K/uL (0.00-0.02); Immature Granulocytes % (auto) 0.2 %; Lymphocytes % (auto) 23.6 %; Mean Corpuscular Hemoglobin 32.6 pg (25-34); Mean Corpuscular Hgb Conc 33.6 g/dL (32-36); Mean Corpuscular Volume 96.9 fL (80-100); Mean Platelet Volume 9.7 fL (7.4-10.4); Monocytes % (auto) 9.4 %; Neutrophils # (auto) 4.05 K/uL (1.4-6.5); Neutrophils % (auto) 63.8 %; Platelet Count 206 K/uL (130-400); RDW Standard Deviation 42.8 fL (36.4-46.3); Red Blood Count 4.48 M/uL (4.7-6.1); White Blood Count 6.35 K/uL (4.8-10.8)
[2020-08-27 08:36] LABS: Albumin Level 3.6 gm/dl (3.4-5.0); BUN Creatinine Ratio 10.1 (10-20); Calcium 9.1 mg/dl (8.5-10.1); Creatinine Clr Calc Pharmacy 106.5 ml/min; Est GFR (African American) 123.5; Est GFR (Non-African American) 106.5; Magnesium 2.2 mg/dl (1.8-2.4); Potassium 4.1 mmol/L (3.5-5.1)
[2020-08-27 08:39] LABS: Albumin Globulin Ratio 1.1 (0.9-2); Bilirubin,Total 0.3 mg/dl (0.2-1); Globulin 3.4 gm/dl (2.5-4.0)
[2020-08-27] MEDS: FLUTICASONE/VILANTEROL 200/25MCG 14 PUFFS/INHALER INH SCH (12:25)
[2020-08-27] MEDS: NICOTINE 21 MG/24 HR TDSY TD SCH (12:25)
[2020-08-27] MEDS: LITHIUM CARBONATE 450 MG TABCR PO SCH (12:25)
[2020-08-27] MEDS: FOLIC ACID 1 MG TAB PO SCH (12:25)
[2020-08-27] MEDS: THIAMINE HCL 100 MG in SYRINGE 9 ML IV SCH (12:26)
[2020-08-27] MEDS: LORazepam 2 MG/4 ML VIAL IV PRN ×3 (12:40→21:32)
[2020-08-27] MEDS: NALTREXONE HCL 50 MG TAB PO SCH (16:56)
[2020-08-27] MEDS: LORazepam 1 MG/2 ML VIAL IV PRN ×3 (17:17→19:41)
[2020-08-27] MEDS: MELATONIN 3 MG TAB PO PRN (19:39)
--- NOTE | 2020-08-27 19:57 | Billing Data ---
Date of Service August 27, 2020 Coding Level of Care Code 05931 Subseq Hosp Care Lvl 3
[2020-08-27] MEDS: chlordiazePOXIDE HCl 25 MG CAP PO SCH (21:17)
[2020-08-27] MEDS ORDERED: CHLORDIAZEPOXIDE 25MG 3RD DOSE PO SCH (23:00)
[2020-08-28 07:49] VITALS: TEMP 97.5
[2020-08-28] MEDS: NICOTINE 21 MG/24 HR TDSY TD SCH (08:13)
[2020-08-28] MEDS: THIAMINE HCL 100 MG in SYRINGE 9 ML IV SCH (08:13)
[2020-08-28] MEDS: LITHIUM CARBONATE 450 MG TABCR PO SCH (08:14)
[2020-08-28] MEDS: FLUTICASONE/VILANTEROL 200/25MCG 14 PUFFS/INHALER INH SCH (08:15)
[2020-08-28] MEDS: FOLIC ACID 1 MG TAB PO SCH (08:16)
[2020-08-28] MEDS: chlordiazePOXIDE HCl 25 MG CAP PO SCH (08:36)
[2020-08-28] MEDS ORDERED: cloNIDine HCL 0.1 MG TAB PO SCH (09:00)
[2020-08-28 09:24] LABS: BUN Creatinine Ratio 9.6 (10-20); Calcium 9.7 mg/dl (8.5-10.1); Creatinine Clr Calc Pharmacy 104.2 ml/min; Est GFR (African American) 120.3; Est GFR (Non-African American) 103.8; Potassium 3.6 mmol/L (3.5-5.1)
[2020-08-28] MEDS ORDERED: chlordiazePOXIDE HCl 25 MG CAP PO ONE (11:30)
[2020-08-28 12:49] VITALS: BP 137/87; PULSE 75; O2SAT 96
--- NOTE | 2020-08-28 13:22 | Discharge Summary ---
Date of Service August 28, 2020 Admission HPI Per Admitting Provider 40 y/o male known to me from when i was in office. long hx etoh abuse - was sober for about 5 years - recent fairly severe relapse - EtOH, ativan, librium all in large amounts. has had prior bad withdrawal. wants help. regrets choices but feels like he has no control. also chills, cough, congestion. can't really tell if it's in his chest or upper airway. Admission Exam Per Admitting Provider gen aaox3 quite intoxicated but alert - recognizes me right away despite my mask and shield. anxious but no physical distress. heent nc at mmm. cardio reg no r/m/g. lungs diffuse rhonchi throughout no wheeze no rales good effort no accessory muscles no conversational dyspnea. abd soft nd nt no masses or organomegaly noted, no guarding/rebound. ext no c/c/e no calf tenderness. neuro no focal deficits, cn 2-12 grossly intact gross motor/sensory intact. skin no rashes no pallor or icterus. mental good recent and remote recall, anxious mood/affect. Principal Diagnosis Alcohol Withdrawal Discharge Exam Constitutional WD/WN, vitals as above Respiratory normal respiratory effort, lungs clear to auscultation Cardiovascular RRR, no murmur, no edema Gastrointestinal (Abdomen) normal bowel sounds, soft, nontender, no hepatosplenomegaly Neurologic Motor/Sensory: + tremor (mild intention tremor - improved) Psychiatric A+Ox3, euthymic affect Eye Contact: + fair eye contact Speech: normal rate/rhythm/volume of speech Affect: + depressed affect Mood: + dysphoric mood Hallucinations: no auditory hallucinations and no visual hallucinations Discharge Data Allergies Allergy/AdvReac Type Severity Reaction Status Date / Time Penicillins Allergy Mild . Verified 08/01/20 22:23 Consultations 08/25/20 20:23 ED Decision to Admit Stat Hospital Course (1) Alcohol withdrawal: Jonas Villafuerte is a 40 yo male with h/o alcohol use disorder, asthma, and schizophrenia (on [place]) who was admitted to [facility] on 08/25/2020 for alcohol withdrawal. Patient was abstinent for 5 years but relapsed 6 months ago with progressively worsening daily alcohol use as well as benzodiazepines. - h/o seizures before and prior more severe DTs - started on Librium taper, AWSS protocol with PRN Ativan, thiamine, folate - symptoms of anxiety, tremor and hypertension adequately controlled with above- mentioned regimen throughout hospitalization - continue home Naltrexone 50 mg PO Q24H on discharge - prescribed limited supply of 7 pills of Ativan 0.5 mg for persistent symptoms of withdrawal after discharge, as patient has high abuse potential - patient desires to continue IOP, psychiatry, therapy, group therapy on discharge; does not want inpatient rehab (2) Asthma: - continue home inhaler, albuterol prn (3) Schizophrenia: - Continue home [place] - subtherapeutic level 0.2 on 08/25 - patient and family reported consistent use of home [place] daily - recommend close follow-up with Psychiatrist after discharge for possible dose adjustment Total Time Total Time Spent Total Time Spent (In Minutes): <30 minutes Total Time Includes: Examination of the Patient, Discharge Planning and Medication Reconciliation Discharge Plan Discharge Items Patient Disposition: Home - Self-Care Reason For Visit: ETOH WITHDRAWAL Discharge Diagnosis: Alcohol Withdrawal Condition on Discharge: Good Activity: Per Instructions section Non-emergency contact: Primary Care Provider and Psychiatrist Call non-emergency contact if: you have any medication questions and your symptoms worsen Follow-up/Referrals: Christian Yusuf MD [Physician] - 09/03/20 11:20 am Diet: Regular Addtl Attending Provider Instructions: You were admitted to [facility] on 08/25/2020 for concerns of alcohol withdrawal, as your blood alcohol level was above 300 on admission. You were started on a taper of a benzodiazepine medication called Librium, in addition to an as-needed benzodiazepine called Ativan for withdrawal symptoms not controlled with Librium. You were also started on folic acid and thiamine supplements, as these levels are generally low in patients who drink chronically. You did well overall during this hospitalization, and your withdrawal symptoms (consisting mostly of tremor, anxiety and high blood pressure) were well-controlled on the above-mentioned medications. You were able to continue IOP, Psychiatry and therapy sessions while hospitalized, and we recommend that you continue all of these interventions after discharge. You should speak to your psychiatrist about your [place] medication, as your blood level in the hospital was low at 0.2. You should also follow up with your PCP after discharge. You should continue to take all of your prescribed home medications, including the daily Naltrexone which will continue to help you with alcohol use cessation. We wish you the best of success; keep up the good work that you started in the hospital! Pending Studies at Discharge: No Stand-Alone Forms: My [facility], Smoking Cessation Medications and DC Order Prescriptions: New naltrexone 50 mg tablet 50 mg PO DAILY Qty: 30 RF: 0 lorazepam 0.5 mg tablet 0.5 mg PO BID PRN (Reason: anxiety) Qty: 7 RF: 0 Continued lithium carbonate 450 mg tablet extended release 1,350 mg PO DAILY RF: 0 folic acid 1 mg Tablet 1 mg PO QAM Qty: 14 RF: 0 Breo Ellipta 200-25 mcg/dose Blister With Device 1 puff inhalation DAILY Qty: 1 RF: 2 sildenafil [Viagra] 100 mg tablet 0 mg PO UD RF: 0 lorazepam [Ativan] 1 mg tablet 1 mg PO Q8H PRN (Reason: alcohol withdrawal) Qty: 9 RF: 0 Discharge Orders: Discharge Order (Routine); Ordered 08/28/20 Ordered By: Jeffery Jarvis/Other Patient Handouts: Understanding Alcoholism, Alcoholism: Myths and Facts, The Impact of Alcoholism, Alcoholism How to be Part of the ..., Alcohol Withdrawal: What to Expect, Addiction: Your Treatment Options, Recovering from Addiction Admission Data Admit Date/Time: 08/25/20 19:32 Attending Provider: Kishor Aguero Admit Provider: Kishor Aguero Primary Care Provider: PCP,NO Other Providers: Kishor Aguero Other Interventions: Discharge Summary Assessment (RN) Last Done: 08/28/20 11:43 Supervising Physician Co-Signing Physician Notes I personally examined the patient and verified all feldman points of history and exam, discussed case, and agree with decision making with Dr Mckeon. very anxious about life outside hospital and off EtOH. worried about relapse. fiance willing to lock up a short taper of ativan to help with this, he feels that could be helpful, although both admit it could be an adversarial point with them - but feel that risk/benefit favors a short taper vitals noted nad heent nc at mmm breathing unlabored no accessory muscles good effort. fine tremor improving, restlessness improving as well EtOH withdrawal - safe for home asthma - home inhalers, breathing OK schizophrenia - lithium, short (#7 total 0.5mg tabs fiance to distribute) course ativan for now, psych f/u immediately after discharge otherwise as above Resident Activity Tracking Resident Involvement: Resident Care Provided Care Provided: Adult Hospital Medicine
--- NOTE | 2020-08-28 19:46 | Billing Data ---
Date of Service August 28, 2020 Coding Level of Care Code D/C Day Management <30 mins
[2020-08-29] MEDS ORDERED: CHLORDIAZEPOXIDE 10MG 4TH DOSE PO SCH (03:00)
== END 2020-08-28 14:46 | disposition home or self-care (01) | DRG 897 ==
LOC: ED 15:59 → 3N 19:32